=== PATIENT | male | born 1970 | race Caucasian/White ===

== ENCOUNTER → 2018-08-15 13:36 | Outpatient (CLI) | payer OTHER, SELFPAY ==
[2018-08-15 16:18] LABS: Anion Gap 10 (5-15); BUN 22 mg/dL (7-18); BUN/Creat Ratio 14.7 RATIO (10-20); Calcium,Total 8.5 mg/dL (8.5-10.1); Chloride 104 mmol/L (98-107); EST Glomerular Filtration Rate 53 mL/min (>60); Est Glom Filt Rate - Afr Amer 64 mL/min (>60); Glucose 207 mg/dL (74-106); Potassium 3.6 mmol/L (3.5-5.1); Sodium Level 142 mmol/L (136-145)
== END ==
PROVIDERS: Family Provider Internal Medicine; PCP Internal Medicine; Referring Provider Internal Medicine Nephrology; Visit Provider Internal Medicine Nephrology
DX: N18.3 Chronic kidney disease, stage 3 (moderate) (principal)
CPT/HCPCS: 36415; 80048

== ENCOUNTER → 2018-11-06 09:30 | Outpatient (CLI) | payer OTHER, SELFPAY ==
[2018-11-06 10:04] LABS: Hematocrit 40.9 % (40-54); Hemoglobin 13.7 g/dl (13.0-16.5); Mean Corp Hgb Conc 33.5 g/gl (32-36); Mean Corpuscular Hgb 29.2 pg (27.0-32.0); Mean Corpuscular Volume 87.2 fL (80-94); Mean Platelet Vol. 10.9 fl (6.2-12.0); Platelet Count 199 K/mm3 (150-450); RBC Distribution Width CV 14.4 % (11.6-14.6); RBC Distribution Width SD 45.5 fl (35.1-43.9); Red Blood Count 4.69 M/mm3 (4.6-6.2); White Blood Count 6.1 K/mm3 (4.4-11.0)
[2018-11-06 10:05] LABS: Scan Indicated on CBC? Y/N NO
[2018-11-06 10:13] LABS: Protein, Urine (Random) 17.5 mg/dL (<11.9); Protein:Creat Ratio 182 mg/g CRE (0-200)
[2018-11-06 10:33] LABS: Albumin, Serum 3.7 g/dL (3.2-5.0); BUN 30 mg/dL (7-18); BUN/Creat Ratio 18.1 RATIO (10-20); Calcium,Total 8.8 mg/dL (8.5-10.1); Chloride 106 mmol/L (98-107); Creatinine, Serum 1.66 mg/dL (0.70-1.30); EST Glomerular Filtration Rate 47 mL/min (>60); Est Glom Filt Rate - Afr Amer 57 mL/min (>60); Glucose 141 mg/dL (74-106); Phosphorus 2.4 mg/dL (2.5-4.9); Potassium 4.4 mmol/L (3.5-5.1); Sodium Level 139 mmol/L (136-145)
[2018-11-06 10:45] LABS: PTHIN 83.2 pg/mL (18.4-80.1)
[2018-11-06 10:46] LABS: Vitamin D,25 Hydroxy 10.6 ng/mL (29.95-100.01)
== END ==
PROVIDERS: Family Provider Internal Medicine; PCP Internal Medicine; Referring Provider Internal Medicine Nephrology; Visit Provider Internal Medicine Nephrology
DX: N18.3 Chronic kidney disease, stage 3 (moderate) (principal)
CPT/HCPCS: 36415; 80069; 82306; 82570; 83970; 84156; 85027

== ENCOUNTER → 2019-04-17 08:33 | Outpatient (CLI) | payer OTHER, SELFPAY ==
[2019-04-17 10:17] LABS: Hematocrit 39.1 % (40-54); Mean Corp Hgb Conc 33.2 g/dL (32-36); Mean Corpuscular Hgb 29.3 pg (27.0-32.0); Mean Corpuscular Volume 88.3 fL (80-94); Mean Platelet Vol. 10.9 fl (6.2-12.0); Platelet Count 227 K/mm3 (150-450); Red Blood Count 4.43 M/mm3 (4.6-6.2); White Blood Count 6.4 K/mm3 (4.4-11.0)
[2019-04-17 10:35] LABS: Protein, Urine (Random) 13.3 mg/dL (<11.9); Protein:Creat Ratio 211 mg/g CRE (0-200)
[2019-04-17 10:51] LABS: Albumin, Serum 3.6 g/dL (3.2-5.0); BUN 34 mg/dL (7-18); BUN/Creat Ratio 18.4 RATIO (10-20); Calcium,Total 9.1 mg/dL (8.5-10.1); Chloride 109 mmol/L (98-107); Creatinine, Serum 1.85 mg/dL (0.70-1.30); EST Glomerular Filtration Rate 41 mL/min (>60); Est Glom Filt Rate - Afr Amer 50 mL/min (>60); Glucose 144 mg/dL (74-106); Phosphorus 2.6 mg/dL (2.5-4.9); Potassium 4.4 mmol/L (3.5-5.1); Sodium Level 140 mmol/L (136-145)
[2019-04-17 10:55] LABS: Vitamin D,25 Hydroxy 23.6 ng/mL (29.95-100.01)
== END ==
PROVIDERS: Family Provider Internal Medicine; PCP Internal Medicine; Referring Provider Internal Medicine Nephrology; Visit Provider Internal Medicine Nephrology
DX: N18.3 Chronic kidney disease, stage 3 (moderate) (principal); N25.81 Secondary hyperparathyroidism of renal origin; E55.9 Vitamin D deficiency, unspecified; Z13.0 Encounter for screening for diseases of the blood and blood-forming organs and certain disorders involving the immune mechanism
CPT/HCPCS: 36415; 80069; 82306; 82570; 83970; 84156; 85027

== ENCOUNTER → 2019-04-29 08:42 | Outpatient (CLI) | payer OTHER, SELFPAY ==
--- NOTE | 2019-04-29 08:44 | RDU_ITS ---
Reason For Study: HTN Right Renal Artery Left Renal Artery Right renal artery ostium Left renal artery ostium 79.7/19.5 113.2/36.4 RSV/EDV. PSV/EDV. Right renal artery proximal Left renal artery proximal PSV/EDV 122.7/25.7 PSV/EDV. 77.8/18.8 . Right renal artery mid 101.4/231 Left renal artery mid 71.1/21 PSV/EDV. PSV/EDV . Right renal artery distal Left renal artery distal 89.5/23.3 125.5/36.4 PSV/EDV. PSV/EDV. Right Renal Parenchyma Left Renal Parenchyma Upper Pole Medula 34.1/15.1 Left upper pole medulla 28.6/7.7 PSV/EDV. PSV/EDV . Right upper pole medulla EDR 0.44 . Left upper pole medulla EDR 0.27 . Right upper pole medulla R.I. Left upper pole medulla R.I. 0.73 . 0.56 . UP Cortex 20.1/5.8 PSV/EDV. Upper Sree Cortx 20.6/8.4 PSV/EDV. Left upper pole cortex EDR 0.29 . Right upper pole cortex EDR 0.41 . Left upper pole cortex R.I. 0.71 . Right upper pole cortex R.I. 0.60 . Left lower Pole medulla 31.1/9.1 Right lower Pole medulla 34.8/12.7 PSV/EDV . PSV/EDV . Left lower pole medulla EDR 0.29 . Right lower pole medulla EDR 0.36 . Left lower pole medulla R.I. 0.71 . Right lower pole medulla R.I. Lower Pole Cortx 18.5/5.8 PSV/EDV. 0.64 . Left lower pole cortex EDR 0.31 . Lower Pole Cortex 21.2/7.7 PSV/EDV. Left lower pole cortex R.I. 0.68 . Right lower pole cortex EDR 0.36 . Left Renal Hilar Right lower pole cortex R.I. 0.64 . LT Hilar avg 56.3/16.1 PSV/EDV . Right Renal Hilar Left hilar acceleration time 10 Right Hilar avg 53.5/10.6 PSV/EDV. m/sec. Right hilar acceleration time 30 Left Renal Dimensions m/sec. Left kidney size 11.16 cm . Right Renal Dimensions Left cortical dimension 1.92 cm . Right kidney size 10.53 cm . Right cortical dimension 2.07 cm . Aorta Proximal abdominal aorta 1.71 x 1.68 cm . Proximal abdominal aorta peak systolic velocity is 128.6 cm/sec . Distal abdominal aorta 1.31 x 1.31 cm . Distal abdominal aorta peak systolic velocity is 135.2 cm/sec . Interpretation Summary Dimensions of the intra-abdominal aorta appear normal, without evidence of aneurysmal dilatation. Renal artery velocities are bilaterally normal. Acceleration times are normal bilaterally. There is no evidence of hemodynamically significant renal artery stenosis on either side. Renovascular resistance appears normal in the right kidney, and elevated in the left kidney. The right cortical dimension is increased. The left cortical dimension is increased. Kidneys appear normal in size bilaterally. Ordering Physician: Sumeet Zaidi Referring Physician: Marlene Haley M.D. Performed By: Nica Stephenson RVT
== END ==
PROVIDERS: Family Provider Internal Medicine; PCP Internal Medicine; Referring Provider Internal Medicine Nephrology; Visit Provider Internal Medicine Nephrology
DX: I10 Essential (primary) hypertension (principal)
CPT/HCPCS: 93975

== ENCOUNTER → 2019-07-31 15:10 | Outpatient (CLI) | payer OTHER, SELFPAY ==
[2019-07-29 14:53] VITALS: BMI 41.8
--- NOTE | 2019-07-31 15:11 | US_ITS ---
STUDY: SCROTUM ULTRASOUND REASON FOR EXAM: Male, 48 years old. RT SIDED PAIN TECHNIQUE: Ultrasound evaluation of the scrotum was performed with color Doppler and static herrera-scale imaging. COMPARISON: None. FINDINGS: RIGHT TESTICLE INTRATESTICULAR: There is a normal size of the right testicle. The right testicle measures 4.1 x 3.0 x 2.6 cm. There is a homogenous echotexture. There is normal arterial and normal venous vascularity. There is no demonstrated right testicular mass or cyst. EXTRATESTICULAR: The epididymis is normal in size. The epididymis head measures 1.0 cm. There is normal vascularity of the epididymis. There is no demonstrated epididymal cystic structure. There is a small hydrocele. There are prominent extratesticular veins consistent with a varicocele. There is no demonstrated extratesticular mass or cyst. LEFT TESTICLE INTRATESTICULAR: There is a normal size of the left testicle. The left testicle measures 3.8 x 3.1 x 2.3 cm. There is a homogenous echotexture. There is normal arterial and normal venous vascularity. There is no demonstrated left testicular mass or cyst. EXTRATESTICULAR: The epididymis is normal in size. The epididymis head measures 0.7 cm. There is normal vascularity of the epididymis. There is simple epididymal cysts. There is a small hydrocele. There are prominent extratesticular veins consistent with a varicocele. There is no demonstrated extratesticular mass or cyst. US/Testicular with Arterial Flow IMPRESSION: 1. Normal bilateral testicles. 2. Small bilateral hydroceles. Small varicoceles. Electronically Signed: Kike Larson MD (Brooks) at 20:58 EST , Service support ,
== END ==
LOC: US 15:11
PROVIDERS: PCP Internal Medicine; Referring Provider Internal Medicine; Visit Provider Internal Medicine
DX: R10.31 Right lower quadrant pain (principal); N50.82 Scrotal pain
CPT/HCPCS: 76870; 93976

== ENCOUNTER 2019-08-06 08:00 | Outpatient (RCR) | payer OTHER, SELFPAY ==
[2019-07-29 14:53] VITALS: BMI 41.8
== END 2019-08-14 23:59 ==
LOC: DC 08:00
PROVIDERS: PCP Internal Medicine; Visit Provider Internal Medicine
DX: Z71.3 Dietary counseling and surveillance (principal); E11.9 Type 2 diabetes mellitus without complications
CPT/HCPCS: 97802; G0108

== ENCOUNTER → 2019-08-17 09:14 | Outpatient (CLI) | payer OTHER, SELFPAY ==
[2019-07-29 14:53] VITALS: BMI 41.8
[2019-08-17 09:56] LABS: Anion Gap 2 (5-15); BUN 50 mg/dL (7-18); BUN/Creat Ratio 23.4 RATIO (10-20); Calcium,Total 9.4 mg/dL (8.5-10.1); Chloride 113 mmol/L (98-107); Cholesterol 215 mg/dL (200); Creatinine, Serum 2.14 mg/dL (0.70-1.30); EST Glomerular Filtration Rate 35 mL/min (>60); Est Glom Filt Rate - Afr Amer 42 mL/min (>60); Glucose 113 mg/dL (74-106); High Density Lipoprotein 27 mg/dL; Sodium Level 139 mmol/L (136-145); Triglycerides 335 mg/dL; Very Low Density Lipoprotein 67 mg/dL (5-40)
== END ==
PROVIDERS: PCP Internal Medicine; Referring Provider Internal Medicine Nephrology; Visit Provider Internal Medicine Nephrology
DX: N18.3 Chronic kidney disease, stage 3 (moderate) (principal)
CPT/HCPCS: 36415; 80048; 80061

== ENCOUNTER 2019-09-08 08:30 | Outpatient (RCR) | payer OTHER, SELFPAY ==
[2019-07-29 14:53] VITALS: BMI 41.8
== END 2019-09-12 23:59 ==
LOC: DC 08:30
PROVIDERS: PCP Internal Medicine; Visit Provider Internal Medicine
DX: Z71.3 Dietary counseling and surveillance (principal); E11.9 Type 2 diabetes mellitus without complications
CPT/HCPCS: 97803; G0108

== ENCOUNTER → 2019-10-29 15:12 | Outpatient (CLI) | payer OTHER, SELFPAY ==
[2019-10-29 13:34] VITALS: BMI 39.6
[2019-10-29 16:09] LABS: Anion Gap 6 (5-15); BUN 30 mg/dL (7-18); BUN/Creat Ratio 17.8 RATIO (10-20); Calcium,Total 9.3 mg/dL (8.5-10.1); Chloride 108 mmol/L (98-107); Creatinine, Serum 1.69 mg/dL (0.70-1.30); EST Glomerular Filtration Rate 46 mL/min (>60); Est Glom Filt Rate - Afr Amer 55 mL/min (>60); Glucose 104 mg/dL (74-106); Potassium 4.5 mmol/L (3.5-5.1); Sodium Level 141 mmol/L (136-145)
[2019-10-29 16:24] LABS: Hemoglobin A1c 5.9 % (4.2-6.3)
== END ==
PROVIDERS: PCP Internal Medicine; Referring Provider Internal Medicine; Visit Provider Internal Medicine
DX: E11.9 Type 2 diabetes mellitus without complications (principal); I12.9 Hypertensive chronic kidney disease with stage 1 through stage 4 chronic kidney disease, or unspecified chronic kidney disease; N18.3 Chronic kidney disease, stage 3 (moderate)
CPT/HCPCS: 80048; 83036

== ENCOUNTER 2019-11-02 15:06 | Outpatient (RCR) | payer OTHER, SELFPAY ==
[2019-07-29 14:53] VITALS: BMI 41.8
[2019-10-29 13:34] VITALS: BMI 39.6
== END 2019-11-12 23:59 ==
LOC: DC 15:06
PROVIDERS: PCP Internal Medicine; Visit Provider Internal Medicine
DX: Z71.3 Dietary counseling and surveillance (principal); E11.9 Type 2 diabetes mellitus without complications
CPT/HCPCS: 97803

== ENCOUNTER → 2019-12-12 08:04 | Outpatient (CLI) | payer OTHER, SELFPAY ==
[2019-10-29 13:34] VITALS: BMI 39.6
[2019-12-12 09:37] LABS: Absolute Lymphocyte Count 1.57 X10^3/uL (0.83-4.51); Absolute Neutrophil Count 4.2 X10^3/uL (2.0-7.7); Basophil# 0.05 X10^3/uL; Basophil% 0.7 % (0-1); Eosinophil# 0.37 X10^3/uL; Eosinophils% 5.5 % (0-5); Hematocrit 37.6 % (40-54); Hemoglobin 11.9 g/dL (13.0-16.5); Lymphocyte # 1.57 X10^3/ul (4.0); Lymphocyte % 23.2 % (19-41); Mean Corp Hgb Conc 31.6 g/dL (32-36); Mean Corpuscular Hgb 28.3 pg (27.0-32.0); Mean Corpuscular Volume 89.3 fL (80-94); Mean Platelet Vol. 11.4 fl (6.2-12.0); Monocyte# 0.59 X10^3/uL; Monocyte% 8.7 % (0-10); NRBC Flagged by Analyzer 0 % (0-5); Neutrophil # 4.18 X10^3/uL (2.7-7.7); Neutrophil % 61.8 % (47-70); Platelet Count 273 K/mm3 (150-450); RBC Distribution Width CV 13.5 % (11.6-14.6); RBC Distribution Width SD 43.8 fl (35.1-43.9); Red Blood Count 4.21 M/mm3 (4.6-6.2); White Blood Count 6.8 K/mm3 (4.4-11.0)
[2019-12-12 09:49] LABS: Protein, Urine (Random) 33.9 mg/dL (<11.9); Protein:Creat Ratio 336 mg/g CRE (0-200)
[2019-12-12 10:08] LABS: Albumin, Serum 3.5 g/dL (3.2-5.0); BUN 40 mg/dL (7-18); BUN/Creat Ratio 20.7 RATIO (10-20); Calcium,Total 9.1 mg/dL (8.5-10.1); Chloride 116 mmol/L (98-107); Creatinine, Serum 1.93 mg/dL (0.70-1.30); EST Glomerular Filtration Rate 39 mL/min (>60); Est Glom Filt Rate - Afr Amer 47 mL/min (>60); Glucose 113 mg/dL (74-106); Phosphorus 4.2 mg/dL (2.5-4.9); Potassium 4.6 mmol/L (3.5-5.1); Sodium Level 141 mmol/L (136-145)
[2019-12-14 11:06] LABS: PTHIN 34.2 pg/mL (18.4-80.1)
[2019-12-14 11:07] LABS: Vitamin D,25 Hydroxy 21.3 ng/mL
== END ==
PROVIDERS: PCP Internal Medicine; Visit Provider Internal Medicine Nephrology
DX: N18.3 Chronic kidney disease, stage 3 (moderate) (principal); E55.9 Vitamin D deficiency, unspecified; N25.81 Secondary hyperparathyroidism of renal origin; Z13.0 Encounter for screening for diseases of the blood and blood-forming organs and certain disorders involving the immune mechanism
CPT/HCPCS: 80069; 82306; 82570; 83970; 84156; 85025

== ENCOUNTER → 2019-12-16 09:25 | Outpatient (CLI) | payer OTHER, SELFPAY ==
[2019-10-29 13:34] VITALS: BMI 39.6
--- NOTE | 2019-12-16 09:27 | EKG12_ITS ---
Test Reason : ARRYTHMIA Blood Pressure : / mmHG Vent. Rate : 083 BPM Atrial Rate : 083 BPM P-R Int : 152 ms QRS Dur : 086 ms QT Int : 364 ms P-R-T Axes : 018 058 013 degrees QTc Int : 427 ms Normal sinus rhythm Nonspecific T wave abnormality Abnormal ECG Confirmed by STEVIE KEN, JORGE ([id number]), medical transcription editor FRANCY RAO ([id number]) on 12/18/2019 9:13:07 AM Referred By: Cristi Serna Confirmed By:JORGE HUBBARD MD
== END ==
PROVIDERS: PCP Internal Medicine; Referring Provider Internal Medicine; Visit Provider Internal Medicine
DX: R00.1 Bradycardia, unspecified (principal)
CPT/HCPCS: 93005

== ENCOUNTER → 2020-01-29 08:52 | Outpatient (CLI) | payer OTHER, SELFPAY ==
[2020-01-29 08:15] VITALS: BMI 39.6
[2020-01-29 12:46] LABS: AST(SGOT) 9 U/L (15-37); Alanine Aminotransfer ALT/SGPT 24 U/L (16-61); Alkaline Phosphatase 96 U/L (45-117); Anion Gap 5 (5-15); BUN 49 mg/dL (7-18); BUN/Creat Ratio 22.6 RATIO (10-20); Calcium,Total 9.4 mg/dL (8.5-10.1); Chloride 116 mmol/L (98-107); Creatinine, Serum 2.17 mg/dL (0.70-1.30); EST Glomerular Filtration Rate 34 mL/min (>60); Est Glom Filt Rate - Afr Amer 41 mL/min (>60); Globulin 4.2 g/dL (2.2-4.2); Glucose 104 mg/dL (74-106); Potassium 5.1 mmol/L (3.5-5.1); Protein, Total 8.2 g/dL (6.4-8.2); Sodium Level 141 mmol/L (136-145)
== END ==
PROVIDERS: PCP Internal Medicine; Referring Provider Internal Medicine; Visit Provider Internal Medicine
DX: I10 Essential (primary) hypertension (principal)
CPT/HCPCS: 36415; 80053

== ENCOUNTER 2020-02-03 16:27 | Outpatient (RCR) | payer OTHER, SELFPAY ==
[2019-10-29 13:34] VITALS: BMI 39.6
[2020-01-29 08:15] VITALS: BMI 39.6
== END 2020-02-12 23:59 ==
LOC: DC 16:27
PROVIDERS: PCP Internal Medicine; Visit Provider Internal Medicine
DX: Z71.3 Dietary counseling and surveillance (principal); E11.9 Type 2 diabetes mellitus without complications
CPT/HCPCS: 97803

== ENCOUNTER 2020-03-29 09:56 | Outpatient (RCR) | payer OTHER, SELFPAY ==
[2020-01-29 08:15] VITALS: BMI 39.6
== END 2020-03-29 23:59 | disposition home or self-care (01) ==
LOC: DC 09:56
PROVIDERS: PCP Internal Medicine; Visit Provider Internal Medicine
DX: Z71.3 Dietary counseling and surveillance (principal); E11.9 Type 2 diabetes mellitus without complications
CPT/HCPCS: 97803

== ENCOUNTER → 2020-04-29 07:56 | Outpatient (CLI) | payer OTHER, SELFPAY ==
[2020-01-29 08:15] VITALS: BMI 39.6
[2020-04-29 12:27] LABS: Absolute Lymphocyte Count 1.56 X10^3/uL (0.83-4.51); Absolute Neutrophil Count 4.1 X10^3/uL (2.0-7.7); Basophil# 0.05 X10^3/uL; Basophil% 0.8 % (0-1); Eosinophil# 0.27 X10^3/uL; Eosinophils% 4.1 % (0-5); Hematocrit 40.7 % (40-54); Hemoglobin 13.2 g/dL (13.0-16.5); Lymphocyte # 1.56 X10^3/ul (4.0); Lymphocyte % 23.7 % (19-41); Mean Corp Hgb Conc 32.4 g/dL (32-36); Mean Corpuscular Hgb 29.8 pg (27.0-32.0); Mean Corpuscular Volume 91.9 fL (80-94); Mean Platelet Vol. 11.3 fl (6.2-12.0); Monocyte# 0.62 X10^3/uL; Monocyte% 9.4 % (0-10); NRBC Flagged by Analyzer 0 % (0-5); Neutrophil # 4.06 X10^3/uL (2.7-7.7); Neutrophil % 61.7 % (47-70); Platelet Count 274 K/mm3 (150-450); RBC Distribution Width CV 12.9 % (11.6-14.6); RBC Distribution Width SD 43.2 fl (35.1-43.9); Red Blood Count 4.43 M/mm3 (4.6-6.2); White Blood Count 6.6 K/mm3 (4.4-11.0)
[2020-04-29 12:50] LABS: Microalbumin,Random Urine 23.3 mg/L (NO RANGE EST.)
[2020-04-29 12:56] LABS: ALB/GLOB Ratio 0.9 RATIO (0.9-2.4); AST(SGOT) 14 U/L (15-37); Alanine Aminotransfer ALT/SGPT 28 U/L (16-61); Albumin, Serum 3.9 g/dL (3.2-5.0); Alkaline Phosphatase 105 U/L (45-117); Anion Gap 5 (5-15); BUN 44 mg/dL (7-18); BUN/Creat Ratio 18.9 RATIO (10-20); Calcium,Total 9.5 mg/dL (8.5-10.1); Chloride 114 mmol/L (98-107); Cholesterol 258 mg/dL (200); Creatinine, Serum 2.33 mg/dL (0.70-1.30); EST Glomerular Filtration Rate 32 mL/min (>60); Est Glom Filt Rate - Afr Amer 38 mL/min (>60); Globulin 4.2 g/dL (2.2-4.2); Glucose 119 mg/dL (74-106); High Density Lipoprotein 39 mg/dL; Potassium 4.9 mmol/L (3.5-5.1); Protein, Total 8.1 g/dL (6.4-8.2); Sodium Level 141 mmol/L (136-145); Thyroid Stim Hormone (TSH) 0.99 uIU/mL (0.358-3.74); Triglycerides 111 mg/dL; Very Low Density Lipoprotein 22 mg/dL (5-40)
[2020-04-29 13:17] LABS: Hemoglobin A1c 5.7 % (3.8-5.6)
== END ==
PROVIDERS: PCP Internal Medicine; Referring Provider Nurse Practitioner Family; Visit Provider Nurse Practitioner Family
CPT/HCPCS: 36415; 80053; 80061; 82043; 82570; 83036; 84443; 85025

== ENCOUNTER → 2020-06-08 07:09 | Outpatient (CLI) | payer OTHER, SELFPAY ==
[2020-05-31 12:58] VITALS: BMI 35.7
--- NOTE | 2020-06-08 07:17 | MRI_ITS ---
STUDY: MRI RIGHT HAND (ATTENTION THIRD FINGER) REASON FOR EXAM: Lump of the third finger at skin marker, increasing in size over the last year. TECHNIQUE: Standardized fat and water weighted pulse sequences were obtained in all 3 orthogonal planes. COMPARISON: Radiographs 05/31/2020. FINDINGS: Normal phalanges of the first through fifth digits and visualized metacarpals without bone edema or pressure erosion. Normal flexor and extensor tendons. Normal metacarpophalangeal joints. Normal interphalangeal joints. There is a well-defined soft tissue mass at the ulnar aspect of the third middle phalanx measuring 1.0 x 0.8 x 1.1 cm (AP x transverse x length). The lesion is intermediate in signal intensity on T1 sequences (T1 axial images 22, 23; T1 coronal images 9, 10) and T2 sequences (T2 sagittal image 17). MRI/Upper Ext/No Jt/ wo IMPRESSION: Soft tissue mass at the ulnar aspect of the third middle phalanx, giant cell tumor of the tendon sheath is the leading differential consideration. Electronically Signed: Alhaji Moore MD at 9:26 EST Tel , Service support ,
[2020-06-08 09:14] LABS: Absolute Lymphocyte Count 1.68 X10^3/uL (0.83-4.51); Absolute Neutrophil Count 4.3 X10^3/uL (2.0-7.7); Basophil# 0.05 X10^3/uL; Basophil% 0.7 % (0-1); Eosinophils% 5.5 % (0-5); Hematocrit 38.4 % (40-54); Hemoglobin 12.3 g/dL (13.0-16.5); Lymphocyte # 1.68 X10^3/ul (4.0); Lymphocyte % 23.3 % (19-41); Mean Corpuscular Hgb 29.5 pg (27.0-32.0); Mean Corpuscular Volume 92.1 fL (80-94); Monocyte# 0.73 X10^3/uL; Monocyte% 10.1 % (0-10); NRBC Flagged by Analyzer 0 % (0-5); Neutrophil # 4.33 X10^3/uL (2.7-7.7); Neutrophil % 60.1 % (47-70); Platelet Count 259 K/mm3 (150-450); RBC Distribution Width CV 12.9 % (11.6-14.6); Red Blood Count 4.17 M/mm3 (4.6-6.2); White Blood Count 7.2 K/mm3 (4.4-11.0)
[2020-06-08 09:27] LABS: Protein, Urine (Random) 15.9 mg/dL (<11.9); Protein:Creat Ratio 331 mg/g CRE (0-200)
[2020-06-08 09:33] LABS: Albumin, Serum 3.7 g/dL (3.2-5.0); BUN 46 mg/dL (7-18); BUN/Creat Ratio 23.8 RATIO (10-20); Calcium,Total 9.1 mg/dL (8.5-10.1); Chloride 111 mmol/L (98-107); Creatinine, Serum 1.93 mg/dL (0.70-1.30); EST Glomerular Filtration Rate 39 mL/min (>60); Est Glom Filt Rate - Afr Amer 47 mL/min (>60); Glucose 112 mg/dL (74-106); Phosphorus 3.6 mg/dL (2.5-4.9); Potassium 4.7 mmol/L (3.5-5.1); Sodium Level 141 mmol/L (136-145)
[2020-06-10 14:39] LABS: Vitamin D,25 Hydroxy 18.2 ng/mL
== END ==
PROVIDERS: Internal Medicine Nephrology; PCP Internal Medicine; Referring Provider Orthopaedic Surgery; Visit Provider Orthopaedic Surgery
DX: D49.9 Neoplasm of unspecified behavior of unspecified site (principal); N18.30 Chronic kidney disease, stage 3 unspecified; N25.81 Secondary hyperparathyroidism of renal origin; E55.9 Vitamin D deficiency, unspecified; R22.30 Localized swelling, mass and lump, unspecified upper limb
CPT/HCPCS: 36415; 73218; 80069; 82306; 82570; 83970; 84156; 85025

== ENCOUNTER → 2020-08-05 07:58 | Outpatient (CLI) | payer OTHER, SELFPAY ==
[2020-08-05 07:34] VITALS: BMI 37.5
[2020-08-05 13:01] LABS: Cholesterol 293 mg/dL (200); High Density Lipoprotein 37 mg/dL; Triglycerides 248 mg/dL; Very Low Density Lipoprotein 50 mg/dL (5-40)
== END ==
PROVIDERS: PCP Internal Medicine; Referring Provider Nurse Practitioner Family; Visit Provider Nurse Practitioner Family
DX: E78.5 Hyperlipidemia, unspecified (principal); E55.9 Vitamin D deficiency, unspecified
CPT/HCPCS: 36415; 80061

== ENCOUNTER 2020-09-05 07:56 | Day surgery (SDC) | payer OTHER, SELFPAY ==
[2020-08-10 09:46] VITALS: BMI 39.9
--- NOTE | 2020-09-04 19:41 | HP.PCM_ITS ---
History and Physical Date of Admission: 09/05/20 HISTORY OF PRESENT ILLNESS 49 year old man presents with a soft tissue mass ulnar aspect middle phalanx right long finger that he first noticed about 12 years ago and has recently increased in size. He denies trauma. He denies fever. He denies numbness. He denies any functional problems with his right long finger. Aspiration was attempted without any fluid return. He had an x-ray done on 05/31/20. It showed soft tissue mass at the ulnar aspect of the middle phalanx without underlying osseous abnormality. An MRI was done on 06/08/20. It showed soft tissue mass at the ulnar aspect of the third middle phalanx, giant cell tumor of the tendon sheath is the leading differential consideration. Patient is right hand dominant. Patient has diabetes mellitus, and his last HgbA1c on 08/05/20 was 6.6. He presents today for further evaluation and treatment. 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 Enlargement of liver Gallstones High cholesterol History of basal cell carcinoma Kidney disease Arthritis Heart valve problem Hypertension Vitamin deficiency PAST SURGICAL HISTORY excision of mass Skin cancer ALLERGIES No Known Allergies MEDICATIONS cholecalciferol (vitamin D3) amlodipine hydrochlorothiazide lisinopril spironolactone fenofibrate gemfibrozil rosuvastatin FAMILY HISTORY Father - Heart disease, Diabetes, Liver disease, Hypertension, High cholesterol Grandfather - Myocardial infarction Mother - High cholesterol, Hypertension Other - Anxiety, Combined hyperlipidemia SOCIAL HISTORY Smoking Status: Never smoker alcohol intake: current alcohol intake frequency: a few times a month substance use type: does not use REVIEW OF SYSTEMS General - Denies fever, fatigue, and weight loss. Eyes - Denies cataracts and glaucoma. ENT - Denies nasal congestion and sore throat. Endocrine - Denies excessive thirst and urination. Skin - Has personal history of skin cancer. Has soft tissue mass ulnar aspect at middle phalanx right long finger. Musculoskeletal - Denies joint pain, joint stiffness, weakness of muscles and joints, back pain, and arthritis. Neuro - Denies headaches. Cardiovascular - Denies chest pain, fatigue, and shortness of breath with exertion. Psych - Denies anxiety and depression. Respiratory - Denies chronic cough and shortness of breath. Gastrointestinal - Denies nausea, vomiting, diarrhea, and constipation. Hematologic - Denies abnormal bruising and bleeding. Genitourinary - Denies hematuria and urinary frequency. PHYSICAL EXAMINATION General - Alert and Oriented. HEENT - PERRL. EOMI. Throat is clear. Neck - Supple and nontender. No cervical adenopathy. Lungs - Clear to auscultation. Heart - Regular rate and rhythm. Abdomen - Soft and nondistended. Extremities - FROM. No axillary adenopathy. Radial pulses are palpable. Patient is right hand dominant. On the dorsal ulnar aspect at middle phalanx right long finger is a soft tissue mass. Measures 2.2 cm. No ulceration. Mass is nontender. Some firmness noted. No fluctuance. No sensory deficits to pinprick. Fingers are warm with good capillary refill. Neuro - CN II-XII grossly intact. Psych - Normal mood and affect. ASSESSMENT 1. 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 2. Personal history of skin cancer. 3. Diabetes mellitus. PLAN X-ray reviewed from 05/31/20. It showed soft tissue mass at the ulnar aspect of the middle phalanx without underlying osseous abnormality. MRI reviewed from 06/08/20. It showed soft tissue mass at the ulnar aspect of the third middle phalanx, giant cell tumor of the tendon sheath is the leading differential consideration. Recommend surgical excision of this soft tissue mass. Will send the mass to Pathology for analysis to rule out carcinoma. Surgery will be done under general anesthesia and tourniquet control on an outpatient basis. Dissection can be tedious because the mass ca wrap around the tendon and the neurovascular bundle since the mass is located ulnarly. Patient understands that nerve repair may be necessary if injured during the surgery. It is important to be as thorough as possible during the initial excision since recurrence is common. Revision surgery is more complex and risky because of the scar tissue which makes it more likely that injury to associated structures may occur. If there is adherence of the mass to the skin, I won't hesitate to remove the overlying skin to help minimize recurrence. Reconstruction would be with a skin flap or a skin graft. Patient has diabetes mellitus. His latest HgbA1c is 6.6 on 08/05/20. For elective surgery, the HgbA1c needs to be less than 8. After surgery if there is stiffness, would order OT for range of motion exercises, strengthening, and edema management. Patient was informed of the risks and complications of the procedure including alternatives to surgery. These were discussed with the patient personally. Patient voices understanding and wishes to proceed. Some of the risks and complications were included in a form from the [employer] [employer]. Some of the risks and complications that were discussed included but were not inclusive of failure to diagnose including symptom relief, pain, infection, numbness, stiffness, loss of digit, RSD (CRPS), need for further surgery, contracture, and wound healing problems. We discussed the current risks associated with COVID-19. While it is understood that there is a community spread of COVID-19, the risk of kailee COVID-19 while at [facility] ([facility]) is very low; however, the risk cannot be completely mitigated because of the community spread of the disease. We discussed in detail the risk of exposure to and/or potential harm posed by the COVID-19 virus with having a surgery/procedure at this time versus the risk of delaying the surgery/procedure. It is not possible to know either the risk of delaying the surgery or procedure or chance of getting an infection with perfect accuracy, but a joint decision was made to proceed at this time with the scheduled surgery/procedure as indicated on the consent form. Patient was notified that we will need to comply with any screening or testing [facility] wishes to perform or that surgery may be delayed for any positive results. Discussed with the patient that I was tested for COVID-19 on 01/14/20 which was negative and on 01/28/20 which was negative and on 02/11/20 which was negative and on 02/25/20 which was negative and on 03/10/20 which was negative and on 03/31/20 which was negative and on 04/21/20 which was negative and on 05/26/20 which was negative and on 06/16/20 which was negative and on 07/05/20 which was negative. My testing regimen at this time is to be COVID-19 tested every 2 weeks or so. I received the COVID-19 vaccine (Moderna) on 07/13/20 and the second dose was received on 08/10/20.
--- NOTE | 2020-09-05 | IMM_PTH ---
PATIENT: UMER PACE Jr. LOC: [facility] – [place] U#:[id number] AGE/SX: 49/M ROOM: RE09/05/[address]: Dr. Leo Moncada MD : 1970 BED: DIS: 09/05/2020 SPEC #: [id number] RECD: 09/06/20 11:39 STATUS: SOUKelly REQ #: [id number] CB: 09/05/20 00:[address]: Leo Moncada DEPT: IMMUNOHISTOCHEMISTRY RECD BY: Meredith Jones ENTERED: 09/06/20 11:42 SP TYPE: IMMUNO OTHR DR: Dr. Cristi Serna MD Tissues: Finger, NOS Procedures: SMA (add) Tio Ret (add) CD34 (add) CK5-6 (add) DESMIN (add) LIZABETH (add) MACRO (add) Vimentin (add) SMM (add) NEUROFIL (add) Pankeratin (initial) S-100 (add) PHYSICIAN & INSTITUTION [address] [address] SPECIMEN INFORMATION: Tissue Source: Soft tissue mass ulnar aspect middle phalanx ring long finger Clinical Info: Soft tissue mass ulnar aspect middle phalanx ring long finger Specimen Number: [id number] CPT code: 73578, 68716 x11 METHODOLOGY: Deparaffinized sections of prefer/formalin-fixed tissue or PAP/DQ stained slides are incubated with monoclonal/polyclonal antibodies/oligonucleotide probes. Localization is made via biotin free immunoperoxidase method. Appropriate controls are performed and reacted as expected. Results on target cell population are indicated in the following table: RESULTS: ANTIBODY / CLONE RESULT AE1-3 (AE1/AE3/PCK26) negative Vimentin (V9) positive CD34 (QBEnd-10) positive, strong Macro (HAM-56) negative Actin (1A4) negative Myosin (simms1) negative Desmin (CE-R-11) negative S-100 (4C4.9) positive, focal, dim Neurofil (2F11) negative CALRET (polyclonal) negative CK5-6 (D5 & 1684) negative LIZABETH (E29) negative These tests were developed and their performance characteristics determined by [facility]. They may not have been cleared or approved by the U.S. Food and Drug Administration. The FDA has determined that such clearance or approval is not necessary. The above immunohistochemical/dualISH markers are ordered and reviewed by the Pathologist. INTERPRETATION: Soft tissue of right long finger, excision: Consistent with neurofibroma. AM:girish 09/07/2020 Case has been reviewed in consultation with Dr. Fuentes who concurs with the above diagnosis. IDC:SARAH
[2020-09-05 08:21] VITALS: BP 127/71; PULSE 77; RESP 16; TEMP 36.6; O2SAT 99; BMI 39.9
[2020-09-05] MEDS: Lactated Ringers 1,000 ML 100 ML IV ×2 (08:26→10:26)
[2020-09-05] MEDS: Lidocaine 1% /Epi 1:100 (20ml) 20 ML Vial (09:27)
--- NOTE | 2020-09-05 09:30 | SOF_PTH ---
PATIENT: UMER PACE Jr. LOC: [facility] [place] U#:[id number] AGE/SX: 49/M ROOM: RE09/05/[address]: Dr. Leo Moncada MD : 1970 BED: DIS: 09/05/2020 SPEC #: [id number] RECD: 09/05/20 11:53 STATUS: MAYTE REAngy #: [id number] CB: 09/05/20 09:[address]: Leo Moncada DEPT: SURGICAL PATHOLOGY RECD BY: Hetal nErique ENTERED: 09/05/20 12:42 SP TYPE: SOFT TISS OTHR DR: Dr. 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 AM:girish COMMENT Immunohistochemistry ([id number]) supports the above diagnosis. Case has been reviewed in consultation with Dr. Fuentes who concurs with the above diagnosis. FRANKLIN:SARAH MICROSCOPIC DESCRIPTION Slides are reviewed. GROSS DESCRIPTION Received in fixative is one container labeled with the patient's name and designated 2.2 cm soft tissue mass ulnar aspect at middle phalanx right long finger. The specimen consists of a piece of hammer soft tissue measuring 1.5 x 1.2 x 1 cm. The entire specimen is submitted in one cassette. / SARAH:girish 09/05/20 TC:1 CPT: 58836
[2020-09-05] MEDS: Mupirocin Ointment 22gm Tube 1 APPLIC (10:05)
--- NOTE | 2020-09-05 10:14 | PCM.OPRPT ---
Report of Operation Date of Procedure: 09/05/20 Pre-Operative Diagnosis: 1. 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 2. Personal history of skin cancer. 3. Diabetes mellitus. Post-Operative Diagnosis: 1. 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 2. Personal history of skin cancer. 3. Diabetes mellitus. 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 Description of Surgical Findings:: 49 year old man presents with a soft tissue mass ulnar aspect middle phalanx right long finger that he first noticed about 12 years ago and has recently increased in size. He denies trauma. He denies fever. He denies numbness. He denies any functional problems with his right long finger. Aspiration was attempted without any fluid return. He had an x-ray done on 05/31/20. It showed soft tissue mass at the ulnar aspect of the middle phalanx without underlying osseous abnormality. An MRI was done on 06/08/20. It showed soft tissue mass at the ulnar aspect of the third middle phalanx, giant cell tumor of the tendon sheath is the leading differential consideration. Patient is right hand dominant. Patient has diabetes mellitus, and his last HgbA1c on 08/05/20 was 6.6. Patient was informed of the risks and complications of the procedure including alternatives to surgery. These were discussed with the patient personally. Patient voices understanding and wishes to proceed. Some of the risks and complications were included in a form from the [employer] [employer]. Total tourniquet time - 23 minutes. senior data modeler: Jazzy CALLEJAS. 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 Drains: None. Estimated Blood Loss (mL): 5 ml. Description of Procedure: Patient was taken to OR in supine position and was placed under general anesthesia. The right hand was prepped and draped in the usual fashion. SCD's were placed for DVT prophylaxis. Perioperative antibiotics were given intravenously. Using xylocaine with epinephrine, a digital metacarpal block was infiltrated. After waiting 5 minutes for the anesthetic to take effect, a digital tourniquet was placed at the base of the right long finger. Under loupe magnification, I made a longitudinal elliptical incision over the dorsal ulnar aspect right long finger at the middle phalanx. The mass was seen. It was dissected down to the extensor tendon. I extended the incision horizontally over the DIP joint crease distally and obliquely over the proximal phalanx proximally. This was done to get adequate composure. The skin flaps were elevated at the level of the extensor tendon. This allowed me to dissect completely around the mass to minimize recurrence. The extensor tendon was elevated and there was an extension of this soft tissue mass beneath the tendon and adherent to the bone. It was dissected free off the bone and underneath the tendon and sent to Pathology for analysis to rule out carcinoma. The mass was superficial to the neurovascular bundle on the ulnar aspect. Yhe mass clinically looked like a giant cell tumor of the tendon sheath. The wound was irrigated with saline. The tourniquet was released after 23 minutes. Hemostasis was obtained with electrocautery and gauze compression. I was able to close the wound without the need for a skin graft or a skin flap. The wound was closed with 5-0 Prolene vertical mattress interrupted sutures and simple interrupted sutures. Antibiotic ointment was applied to the suture line followed by Xeroform gauze and 2x2 gauze followed by 2 inch Mervin wrap. Patient tolerated the procedure well and was sent to PACU in satisfactory condition. Patient will be sent home on antibiotics and pain medication. Patient will followup in a week for a wound check and for discussion of the pathology report. The sutures will be removed in two weeks. Grafts/Implants Used: None. - Complications None. - Admit VTE Documentation VTE Present on Admission: No VTE Mechan Device Prophylaxis: SCD's VTE Pharm Prophylaxis ordered?: No Surgery Charges CPT - 45342 ICD-10 - D48.1, Z85.828
[2020-09-05 10:15] VITALS: BP 122/75; BP 127/71; PULSE 78; RESP 18; TEMP 36.2; O2SAT 100
[2020-09-05 10:30] VITALS: BP 114/64; BP 127/71; PULSE 72; RESP 16; O2SAT 95
--- NOTE | 2020-09-05 10:35 | DCINST_ITS ---
You will use the following diet at home:: Calorie/Carbohydrate Controlled (specify 1200, 1400, etc) Discharge Activity: May not drive while taking narcotic pain medications., May Shower - wear plastic bag over right hand when showering., - - keep right hand elevated. no heavy lifting with right hand. May shower in (days): 1 - wear plastic bag over right hand when showering. May resume sexual activity in: No Restrictions Weight Bearing Status: Weight bearing as tolerated Lifting Restrictions: 20 lbs. Keep extremity elevated above heart level: Right Arm Call your doctor if your incision/area has: Continuous Slow Oozing, Sudden Increased Bleeding, Increased Pain/ Swelling, Increased Redness, Foul Smelling Discharge, Swelling at the incision site Call your doctor if you observe: Fever of 101 or Higher, Coldness, Increased Pain, Shortness of breath, Chest pain, Calf discomfort, Uncontrolled pain Suture Line Care: - - apply antibiotic ointment to suture line after operative dressing removed in office. Change Dressing in (Days):: 7 - will change operative dressing in office. Cleanse incision/area with: - - wear plastic bag over right hand when showering. Allergies/Adverse Reactions: Allergies Penicillins [PCN] Allergy (Verified 08/29/20 08:58) PT UNSURE OF REACTION Medications to take at Discharge cholecalciferol (vitamin D3) 1,250 mcg (50,000 unit) oral wafer 50,000 unit PO QMONTH wafer 07/29/19 amlodipine 10 mg tablet 10 mg PO DAILY #90 tab 07/27/20 hydrochlorothiazide 25 mg tablet 25 mg PO DAILY #90 tab 07/27/20 lisinopril 40 mg tablet 40 mg PO DAILY #90 tab 07/27/20 spironolactone 25 mg tablet 25 mg PO DAILY #90 tab 07/27/20 fenofibrate nanocrystallized 48 mg tablet 48 mg PO DAILY #90 tab 08/10/20 Rosuvastatin Calcium 10 mg PO QHS 08/29/20 Clindamycin HCl [Cleocin] 300 mg PO TID #12 cap 09/05/20 Oxycodone HCl/Acetaminophen [Percocet 5/325] 1 tablet PO Q4H PRN PRN 7 Days #40 tablet 09/05/20 The following prescriptions were given: Clindamycin HCl [Cleocin] 300 mg PO TID #12 cap Transmission Status: Pending to [facility]30 Oxycodone HCl/Acetaminophen [Percocet 5/325] 1 tablet PO Q4H PRN PRN 7 Days #40 tablet PRN Reason: Pain Score 6-10 Transmission Status: Sent to [facility] #30 Primary Care Physician: Cristi Serna MD [Primary Care Provider] - Test Results: Test results from this visit will be discussed in further detail at your follow- up appointment, if applicable. Please Follow Up With: Leo Moncada MD When: one week. call [phone] for appt. Proposed Discharge Date: 09/05/20
[2020-09-05 10:45] VITALS: BP 110/68; BP 127/71; PULSE 72; RESP 16; O2SAT 96
[2020-09-05 11:00] VITALS: BP 114/64; BP 127/71; PULSE 74; RESP 16; TEMP 36.2; O2SAT 94
[2020-09-05] MEDS: Acetaminophen 325 MG Tablet PO (11:35)
[2020-09-05] MEDS: oxyCODONE 5 MG Tablet PO (11:36)
[2020-09-05 11:42] VITALS: BP 123/56; BP 127/71; PULSE 78; RESP 16; TEMP 36.4; O2SAT 98
== END 2020-09-05 12:08 | disposition home or self-care (01) ==
LOC: SDC 07:57 → AC 07:58
PROVIDERS: PCP Internal Medicine; Referring Provider Surgery; Visit Provider Surgery
PROC: (CPT 26113; principal; 2020-09-05 09:15)
DX: D48.1 Neoplasm of uncertain behavior of connective and other soft tissue (principal); Z85.828 Personal history of other malignant neoplasm of skin; E11.9 Type 2 diabetes mellitus without complications; E78.00 Pure hypercholesterolemia, unspecified; I10 Essential (primary) hypertension; M19.90 Unspecified osteoarthritis, unspecified site; Z79.899 Other long term (current) drug therapy; Z82.49 Family history of ischemic heart disease and other diseases of the circulatory system; Z83.49 Family history of other endocrine, nutritional and metabolic diseases; Z83.3 Family history of diabetes mellitus
CPT/HCPCS: 01850; 26113; 87426; 88305; 88341; 88342; C9803; J7120; J2405

== ENCOUNTER → 2022-04-20 | Outpatient (CLI) | payer OTHER, SELFPAY ==
[2022-04-20 09:34] LABS: Absolute Lymphocyte Count 1.44 X10^3/uL (0.83-4.51); Absolute Neutrophil Count 4.7 X10^3/uL (2.0-7.7); Basophil# 0.04 X10^3/uL; Basophil% 0.6 % (0-1); Eosinophil# 0.29 X10^3/uL; Hematocrit 40.4 % (40-54); Hemoglobin 13.4 g/dL (13.0-16.5); Lymphocyte # 1.44 X10^3/ul (0.83-4.51); Mean Corp Hgb Conc 33.2 g/dL (32-36); Mean Corpuscular Hgb 29.6 pg (27.0-32.0); Mean Corpuscular Volume 89.2 fL (80-94); Mean Platelet Vol. 11.3 fl (6.2-12.0); Monocyte# 0.73 X10^3/uL; Monocyte% 10.2 % (0-10); NRBC Flagged by Analyzer 0 % (0-5); Neutrophil # 4.66 X10^3/uL (2.7-7.7); Neutrophil % 64.8 % (47-70); Platelet Count 233 K/mm3 (150-450); RBC Distribution Width CV 13.5 % (11.6-14.6); RBC Distribution Width SD 44.1 fl (35.1-43.9); Red Blood Count 4.53 M/mm3 (4.6-6.2); White Blood Count 7.2 K/mm3 (4.4-11.0)
[2022-04-20 10:19] LABS: ALB/GLOB Ratio 0.9 RATIO (0.9-2.4); AST(SGOT) 23 U/L (15-37); Alanine Aminotransfer ALT/SGPT 36 U/L (16-61); Albumin, Serum 3.4 g/dL (3.2-5.0); Alkaline Phosphatase 71 U/L (45-117); Anion Gap 6 (5-15); BUN 51 mg/dL (7-18); BUN/Creat Ratio 15.7 RATIO (10-20); Calcium,Total 9.4 mg/dL (8.5-10.1); Chloride 105 mmol/L (98-107); Cholesterol 197 mg/dL (200); Creatinine, Serum 3.25 mg/dL (0.70-1.30); EST Glomerular Filtration Rate 21 mL/min (>60); Est Glom Filt Rate - Afr Amer 26 mL/min (>60); Globulin 3.7 g/dL (2.2-4.2); Glucose 176 mg/dL (74-106); High Density Lipoprotein 31 mg/dL; PSA,Total - Annual Screen 1.95 ng/mL (0.00-4.00); Potassium 4.8 mmol/L (3.5-5.1); Protein, Total 7.1 g/dL (6.4-8.2); Sodium Level 138 mmol/L (136-145); Thyroid Stim Hormone (TSH) 1.08 uIU/mL (0.358-3.74); Triglycerides 304 mg/dL; Very Low Density Lipoprotein 61 mg/dL (5-40)
[2022-04-20 10:46] LABS: Microalbumin,Random Urine 13.9 mg/L (NO RANGE EST.)
[2022-04-20 11:55] LABS: Vitamin D,25 Hydroxy 27.3 ng/mL
== END | disposition home or self-care (01) ==
LOC: BIMLAB 08:00
PROVIDERS: PCP Internal Medicine; Referring Provider Nurse Practitioner Family; Visit Provider Nurse Practitioner Family
DX: E11.9 Type 2 diabetes mellitus without complications (principal); N18.30 Chronic kidney disease, stage 3 unspecified; I12.9 Hypertensive chronic kidney disease with stage 1 through stage 4 chronic kidney disease, or unspecified chronic kidney disease; E78.5 Hyperlipidemia, unspecified; E55.9 Vitamin D deficiency, unspecified; Z12.5 Encounter for screening for malignant neoplasm of prostate
CPT/HCPCS: 36415; 80053; 80061; 82043; 82306; 82570; 84153; 84443; 85025; G0103

== ENCOUNTER → 2022-05-18 | Outpatient (CLI) | payer OTHER, SELFPAY ==
[2022-05-18 13:05] LABS: Anion Gap 8 (5-15); BUN 51 mg/dL (7-18); BUN/Creat Ratio 14.1 RATIO (10-20); Calcium,Total 9.9 mg/dL (8.5-10.1); Chloride 109 mmol/L (98-107); Creatinine, Serum 3.61 mg/dL (0.70-1.30); EST Glomerular Filtration Rate 19 mL/min (>60); Est Glom Filt Rate - Afr Amer 23 mL/min (>60); Glucose 113 mg/dL (74-106); Potassium 4.7 mmol/L (3.5-5.1); Sodium Level 139 mmol/L (136-145)
[2022-05-18 13:13] LABS: Protein, Urine (Random) 22.3 mg/dL (<11.9); Protein:Creat Ratio 88 mg/g CRE (0-200)
== END | disposition home or self-care (01) ==
LOC: BIMLAB 10:03
PROVIDERS: Nurse Practitioner Family; PCP Internal Medicine; Referring Provider Internal Medicine Nephrology; Visit Provider Internal Medicine Nephrology
DX: N18.32 Chronic kidney disease, stage 3b (principal)
CPT/HCPCS: 36415; 80048; 82570; 84156

== ENCOUNTER → 2022-06-15 | Outpatient (CLI) | payer OTHER, SELFPAY ==
[2022-06-15 12:40] LABS: Hematocrit 39.5 % (40-54); Hemoglobin 12.7 g/dL (13.0-16.5); Mean Corp Hgb Conc 32.2 g/dL (32-36); Mean Corpuscular Hgb 29.1 pg (27.0-32.0); Mean Corpuscular Volume 90.6 fL (80-94); Mean Platelet Vol. 11.5 fl (6.2-12.0); Platelet Count 243 K/mm3 (150-450); RBC Distribution Width CV 13.5 % (11.6-14.6); RBC Distribution Width SD 45.2 fl (35.1-43.9); Red Blood Count 4.36 M/mm3 (4.6-6.2); White Blood Count 6.3 K/mm3 (4.4-11.0)
[2022-06-15 12:43] LABS: Protein, Urine (Random) 23.4 mg/dL (<11.9); Protein:Creat Ratio 106 mg/g CRE (0-200)
[2022-06-15 12:45] LABS: PTHIN 38.2 pg/mL (18.4-80.1)
[2022-06-15 12:50] LABS: Albumin, Serum 3.8 g/dL (3.2-5.0); BUN 33 mg/dL (7-18); BUN/Creat Ratio 16.6 RATIO (10-20); Calcium,Total 9.6 mg/dL (8.5-10.1); Chloride 109 mmol/L (98-107); Creatinine, Serum 1.99 mg/dL (0.70-1.30); EST Glomerular Filtration Rate 38 mL/min (>60); Est Glom Filt Rate - Afr Amer 45 mL/min (>60); Glucose 103 mg/dL (74-106); Phosphorus 2.9 mg/dL (2.5-4.9); Potassium 3.8 mmol/L (3.5-5.1); Sodium Level 139 mmol/L (136-145)
== END | disposition home or self-care (01) ==
LOC: BIMLAB 09:00
PROVIDERS: PCP Internal Medicine; Referring Provider Internal Medicine Nephrology; Visit Provider Internal Medicine Nephrology
DX: R80.9 Proteinuria, unspecified (principal); N25.81 Secondary hyperparathyroidism of renal origin; N18.32 Chronic kidney disease, stage 3b; E55.9 Vitamin D deficiency, unspecified; Z13.0 Encounter for screening for diseases of the blood and blood-forming organs and certain disorders involving the immune mechanism
CPT/HCPCS: 36415; 80069; 82306; 82570; 83970; 84156; 85027

== ENCOUNTER 2022-07-22 23:06 | Observation (INO) | payer OTHER, SELFPAY ==
[2022-07-22 23:07] VITALS: BP 153/89; PULSE 96; RESP 15; TEMP 36.8; O2SAT 98; BMI 36.3
--- NOTE | 2022-07-22 23:35 | US_ITS ---
EXAM: US ABDOMEN LIMITED, RIGHT UPPER QUADRANT CLINICAL INDICATION: PAIN ruq TECHNIQUE: Real-time ultrasound of the right upper quadrant with image documentation. This report was created using [employer] report generation technology. COMPARISON: None. FINDINGS: LIVER: Unremarkable. There is normal echotexture. No focal hepatic lesion. No intrahepatic biliary ductal dilation. GALLBLADDER: Multiple gallstones. Gallbladder wall is within normal limits measuring 2 mm. (It was measured incorrectly by the senior cytotechnologist.) No pericholecystic fluid. Negative sonographic Patel''s sign. COMMON BILE DUCT: Mild dilation of the common bile duct. Mildly dilated at 9.3 mm. PANCREAS: Unremarkable as visualized. No focal abnormality is demonstrated in the pancreas. No pancreatic ductal dilatation. RIGHT KIDNEY: Unremarkable. There is no hydronephrosis. No shadowing calculus. No focal lesion or perinephric collection is demonstrated. US/Gallbladder IMPRESSION: 1. Cholelithiasis with no sonographic evidence of acute cholecystitis. 2. Mild dilation of the common bile duct. Correlate for any laboratory evidence of biliary obstruction which could indicate a distal common duct stone. Electronically Signed: Rc Calderon MD at 0:51 EST ,
[2022-07-22] MEDS: Ketorolac 30 MG/ML Syringe IV (23:39)
[2022-07-22] MEDS: Ondansetron 4 MG/2 ML Vial IV (23:39)
[2022-07-22] MEDS: Morphine 4 MG/ML Syringe IV (23:40)
[2022-07-22] MEDS: 0.9% Normal Saline 1,000 ML 125 ML IV (23:45)
--- NOTE | 2022-07-22 23:51 | EDS_ITS ---
HPI HPI - GI History of Present Illness Chief Complaint: Abd Pain Informant: patient Abdominal Pain/Flank Pain Onset: Yesterday Context: Gradual Onset Timing: Continuous and Waxes and wanes Quality: Aching Location: RUQ (Into right flank but less back) Current Severity: Moderate Maximum Severity: Moderate Worsened by: Nothing Relieved by: Nothing Nausea/Vomiting/Emesis GI Symptom: Negative for Nausea or Vomiting Diarrhea/Melena/Hematochezia GI Symptom: Negative for Diarrhea, Melena or Hematochezia Associated Symptoms Associated Symptoms: Negative for Dysuria, Frequency, Hematuria or Urgency Narrative Narrative: Patient has been having colicky pain in his right upper quadrant/flank for the past day or 2, thinks it may have started after a meal but he has not eaten anything since then do know if it gets worse with eating or not but the pain has not resolved. It makes him feel like he does not have an appetite but he has not been nauseated or vomiting. No fevers or chills. Sometimes he has had pain going into the right side of his back but the majority of it is more anterior lateral. States this feels like gallstone pain that he had in the past. He has not been seen for consultation for cholecystectomy. 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 Seasonal allergies Vitamin D deficiency Vitamin deficiency Home Medications lancets 28 gauge (FreeStyle Lancets) #200 ea 11/04/20 [Rx Last Taken Unknown] blood sugar diagnostic (FreeStyle Lite Strips) #100 ea 04/20/22 [Rx Last Taken Unknown] blood-glucose meter (FreeStyle Lite Meter kit) #1 ea 04/20/22 [Rx Last Taken Unknown] amlodipine 10 mg tablet 10 mg PO DAILY #90 tabs 04/24/22 [Rx Last Taken Unknown] fenofibrate nanocrystallized 48 mg tablet 48 mg PO DAILY #90 tabs 04/24/22 [Rx Last Taken Unknown] hydrochlorothiazide 25 mg tablet 25 mg PO DAILY #90 tabs 04/24/22 [Rx Last Taken Unknown] lisinopril 40 mg tablet 40 mg PO DAILY #90 tabs 04/24/22 [Rx Last Taken Unknown] rosuvastatin 10 mg tablet 10 mg PO QHS #90 tabs 04/24/22 [Rx Last Taken Unknown] sitagliptin phosphate 25 mg tablet (Januvia) 25 mg PO DAILY #90 tabs 04/24/22 [Rx Last Taken Unknown] spironolactone 25 mg tablet 25 mg PO DAILY #90 tabs 04/24/22 [Rx Last Taken Unknown] Allergy/AdvReac Type Severity Reaction Status Date / Time Penicillins [PCN] Allergy PT UNSURE Verified 07/22/22 23:07 OF REACTION Family History Father Heart disease Diabetes Liver disease Hypertension High cholesterol Grandfather Myocardial infarction Mother High cholesterol Hypertension Other Anxiety Combined hyperlipidemia Surgical History History of hand surgery Skin cancer Social History Smoking Status: Never smoker alcohol intake: current alcohol intake frequency: a few times a month substance use type: does not use what type of physical activity do you participate in: bicycling additional social history: Does not take aspirin Does not take Ibuprofen ROS ROS ED Constitutional Constitutional ED: Reports anorexia; Denies chills or fever(s) Eyes Eyes: Denies change in vision or diplopia ENT ENT ED: Denies rhinorrhea or sore throat Cardiovascular Cardiovascular: Denies chest pain or palpitations Respiratory/Chest Respiratory/Chest: Denies cough or dyspnea Gastrointestinal Gastrointestinal: Reports abdominal pain; Denies diarrhea, nausea or vomiting Genitourinary Genitourinary ED: Denies dysuria or hematuria Musculoskeletal Musculoskeletal: Denies myalgias or neck pain Integumentary Denies abscess or rash Neurologic Neurologic: Denies headache(s), paresthesias or weakness Psychiatric Psychiatric: Denies anxiety or suicidal thoughts EXAM Physical Exam Const Vital Signs: 07/22/22 23:07 Temperature 98.2 F Temperature Source Temporal Pulse Rate 96 Respiratory Rate 15 Blood Pressure 153/89 H Blood Pressure Mean 110 Pulse Ox 98 Oxygen Delivery Method Room Air Positive well nourished and well developed General Appearance ED: well developed and NAD HEENT Reports moist mucous membranes normocephalic and atraumatic Eyes PERRL and EOMs intact bilaterally Neck full ROM and supple Resp normal respiratory effort and clear to auscultation bilaterally Cardio regular rate, regular rhythm and no murmurs GI non-distended GI Narrative: Tender lateral aspect right upper quadrant. No guarding or rebound. No other areas of abdominal tenderness. Auscultation: normoactive bowel sounds Palpation: soft Back/Spine no CVA tenderness General Back: other FROM Extremity normal to inspection General Extremety ED: Negative for edema, pulses abnormal or tenderness General Extremity: Negative for edema or pulses abnormal Neuro oriented x3, CN's II-XII intact bilaterally and no sensory deficits noted Sensorium / Orientation: awake and alert Motor Exam: strength 5/5 throughout Psych mental status grossly normal and thought process normal Skin no rashes or lesions noted and no wounds MDM MDM MDM Narrative Medical decision making narrative: Feeling better after Zofran, morphine, Toradol. On reexamination, still mildly tender where he was having the pain, lateral right upper quadrant. Negative Patel. He has a leukocytosis of 14 with a leftward shift, his liver enzymes are within normal limits, kidney function similar better than prior, and urinalysis shows positive nitrite but negative for everything else, I sent that for culture but I am at a low suspicion of him having pyelonephritis or urine infection. Given his history of gallstones, we obtained a right upper quadrant ultrasound, it is consistent with cholelithiasis without radiographic signs of acute cholecystitis. My interpretation of the ultrasound agrees with that of the radiologist. However given the fact he is diabetic and has been having symptoms compatible with cholecystitis and has a leukocytosis, I discussed with Dr. Arias surgery. He evaluated patient in ER, agrees that it is possible this is not biliary but also agrees with treating him as acute calculus cholecystitis until proven otherwise, so plan is to admit him for likely surgery tomorrow. He is allergic to penicillin so we gave him Cipro down here he is clinically and hemodynamically stable. Lab Data Attestation: I reviewed the patient's lab results. Labs: Laboratory Results - last 24 hr 07/22/22 07/22/22 07/23/22 23:30 23:30 00:57 WBC 14.1 H RBC 4.75 Hgb 13.8 Hct 40.7 MCV 85.7 MCH 29.1 MCHC 33.9 RDW Std Deviation 41.1 RDW Coeff of Anna 13.2 Plt Count 263 MPV 10.9 Immature Gran % (Auto) 0.400 Neut % (Auto) 83.8 H Lymph % (Auto) 9.0 L [place] % (Auto) 6.2 Eos % (Auto) 0.4 Baso % (Auto) 0.2 Absolute Neuts (auto) 11.8 H Absolute Lymphs (auto) 1.27 Nucleated RBC % 0 Sodium 141 Potassium 3.6 Chloride 109 H Carbon Dioxide 24.0 Anion Gap 8 BUN 20 H Creatinine 1.75 H Estim Creat Clear Calc 47.23 Est GFR (MDRD) Af Amer 53 L Est GFR (MDRD) Non-Af 43 L BUN/Creatinine Ratio 11.4 Glucose 183 H Calcium 9.5 Total Bilirubin 0.30 AST 11 L ALT 28 Alkaline Phosphatase 102 Total Protein 7.7 Albumin 3.6 Globulin 4.1 Albumin/Globulin Ratio 0.9 Lipase 177 Urine Color Yellow Urine Clarity Sl. Cloudy Urine pH 6.5 Ur Specific [place] 1.020 Urine Protein 30 H Urine Glucose (UA) 50 H Urine Ketones Negative Urine Occult Blood Negative Urine Nitrite Positive H Urine Bilirubin Negative Urine Urobilinogen Normal Ur Leukocyte Esterase 25 H Urine RBC 0 SEEN Urine WBC 0 SEEN Ur Squamous Epith Cells 0 SEEN Urine Bacteria RARE Urine Mucus 0 SEEN Radiography Diagnostic Testing: Clinical Impression(s) from Imaging Studies Gallbladder Ultrasound 07/22/22 23:35 IMPRESSION: 1. Cholelithiasis with no sonographic evidence of acute cholecystitis. 2. Mild dilation of the common bile duct. Correlate for any laboratory evidence of biliary obstruction which could indicate a distal common duct stone. Electronically Signed: Rc Calderon MD at 0:51 EST , Discharge Plan Triage Chief Complaint: Abd Pain ED Provider: Blayne Hargrove Dx/Rx/DC Orders Clinical Impression: Acute calculous cholecystitis Prescriptions: No Action (DME) lancets [FreeStyle Lancets] 28 gauge misc See Rx Instructions .MEDSUPPLY Qty: 200 3RF Rx Instructions: check blood glucose daily for type 2 DM (DME) blood-glucose meter [FreeStyle Lite Meter] Kit See Rx Instructions .MEDSUPPLY Qty: 1 0RF Rx Instructions: As directed, check blood glucose daily for type 2 DM (DME) FreeStyle Lite Strips Strip See Rx Instructions .MEDSUPPLY Qty: 100 3RF Rx Instructions: check blood glucose daily for type 2 DM amlodipine 10 mg tablet 10 mg PO DAILY Qty: 90 3RF fenofibrate nanocrystallized 48 mg tablet 48 mg PO DAILY Qty: 90 3RF hydrochlorothiazide 25 mg tablet 25 mg PO DAILY Qty: 90 3RF lisinopril 40 mg tablet 40 mg PO DAILY Qty: 90 3RF rosuvastatin 10 mg tablet 10 mg PO QHS Qty: 90 3RF Januvia 25 mg tablet 25 mg PO DAILY Qty: 90 3RF spironolactone 25 mg tablet 25 mg PO DAILY Qty: 90 3RF Primary Care Provider: Cristi Serna Referrals: Cristi Serna MD [Primary Care Provider] - Disposition Disposition: Acute Care Hospital [facility]
[2022-07-22 23:53] LABS: Absolute Lymphocyte Count 1.27 X10^3/uL (0.83-4.51); Absolute Neutrophil Count 11.8 X10^3/uL (2.0-7.7); Basophil# 0.03 X10^3/uL; Basophil% 0.2 % (0-1); Eosinophil# 0.05 X10^3/uL; Eosinophils% 0.4 % (0-5); Hematocrit 40.7 % (40-54); Hemoglobin 13.8 g/dL (13.0-16.5); Lymphocyte # 1.27 X10^3/ul (0.83-4.51); Mean Corp Hgb Conc 33.9 g/dL (32-36); Mean Corpuscular Hgb 29.1 pg (27.0-32.0); Mean Corpuscular Volume 85.7 fL (80-94); Mean Platelet Vol. 10.9 fl (6.2-12.0); Monocyte# 0.87 X10^3/uL; Monocyte% 6.2 % (0-10); NRBC Flagged by Analyzer 0 % (0-5); Neutrophil # 11.78 X10^3/uL (2.7-7.7); Neutrophil % 83.8 % (47-70); Platelet Count 263 K/mm3 (150-450); RBC Distribution Width CV 13.2 % (11.6-14.6); RBC Distribution Width SD 41.1 fl (35.1-43.9); Red Blood Count 4.75 M/mm3 (4.6-6.2); White Blood Count 14.1 K/mm3 (4.4-11.0)
[2022-07-23] VITALS (15 sets, daily range): BP systolic 114–135; BP diastolic 64–85; PULSE 70–82; RESP 16–18; TEMP 36.1–37; O2SAT 92–98; BMI 36.1
--- NOTE | 2022-07-23 | GALL_PTH ---
PATIENT: UMER PACE Jr. LOC: MS3 U#:[id number] AGE/SX: 51/M ROOM: [facility] [place] RE07/23/[address]: Dr. Irwin Arias MD : 1970 BED: 1 DIS: 07/24/2022 SPEC #: [id number] RECD: 07/23/22 14:24 STATUS: MAYTE TOSHIA #: [id number] CB: 07/23/22 00:[address]: Irwin Arias DEPT: SURGICAL PATHOLOGY RECD BY: Jason Terrazas ENTERED: 07/24/22 09:10 SP TYPE: DALILA ANDERSON DR: Dr. Cristi Serna MD Tissues: A - Gallbladder, NOS B - Soft tissues, NOS Procedures: Surgery Specimen Level III HEADER OPERATION: Laparoscopic cholecystectomy with IOC, excision of abdominal mass PRE-OP DIAGNOSIS: Cholelithiasis, mild dilation of common bile duct TISSUE SUBMITTED: A ? Gallbladder and gallstone, B ? Left upper quadrant lipoma mass MICROSCOPIC DIAGNOSIS A. Gallbladder, cholecystectomy: Acute and chronic cholecystitis and cholelithiasis with denudation of mucosa. B. Left upper quadrant mass, excision: Mature adipose tissue consistent with lipoma. AM:girish 07/25/2022 MICROSCOPIC DESCRIPTION Slides are reviewed. GROSS DESCRIPTION A - Received is one container labeled with the patient's name and designated gallbladder, gallstone. The specimen consists of a portion of gallbladder consisting of fundus measuring 5 cm in length and up to 3 cm in diameter. The serosa is congested and hemorrhagic. Also present in the container are multiple pieces of soft tissue measuring in aggregate 3 x 2.5 x 1 cm. No obvious cystic duct could be identified. Also present in the container is an ovoid brown-black stone measuring 3 cm in greatest dimension. The mucosa is congested and hemorrhagic. No bile is noted. The gallbladder wall measures up to 0.5 cm in thickness. Reporting Specialist sections are submitted in two cassettes. B - Received in fixative is one container labeled with the patient's name and designated left upper quadrant lipoma mass. The specimen consists of an irregular piece of yellow adipose tissue measuring 2 x 1 x 1 cm. Sections reveal yellow adipose cut surfaces without area of hemorrhage, necrosis or cystic degeneration. The entire specimen is submitted in one cassette. / SJ:girish 07/24/2022 TC:2 CPT: 52253 x2
[2022-07-23 00:10] LABS: ALB/GLOB Ratio 0.9 RATIO (0.9-2.4); AST(SGOT) 11 U/L (15-37); Alanine Aminotransfer ALT/SGPT 28 U/L (16-61); Albumin, Serum 3.6 g/dL (3.2-5.0); Alkaline Phosphatase 102 U/L (45-117); Anion Gap 8 (5-15); BUN 20 mg/dL (7-18); BUN/Creat Ratio 11.4 RATIO (10-20); Calcium,Total 9.5 mg/dL (8.5-10.1); Chloride 109 mmol/L (98-107); Creatinine, Serum 1.75 mg/dL (0.70-1.30); EST Glomerular Filtration Rate 43 mL/min (>60); Est Glom Filt Rate - Afr Amer 53 mL/min (>60); Estimated Creatinine Clearance 47.23 ml/min; Globulin 4.1 g/dL (2.2-4.2); Glucose 183 mg/dL (74-106); Lipase 177 U/L (73-393); Potassium 3.6 mmol/L (3.5-5.1); Protein, Total 7.7 g/dL (6.4-8.2); Sodium Level 141 mmol/L (136-145)
[2022-07-23 01:08] LABS: Mucous, Urine 0 SEEN /hpf (<or=2+); Red Blood Cells-Urine 0 SEEN /hpf (0-5); Squamous Epithelial Cells - UA 0 SEEN /hpf (0-5); White Blood Cells 0 SEEN /hpf (0-5)
[2022-07-23 01:14] LABS: Color, Urine Yellow (Yellow); Glucose, Dipstick 50 mg/dl (Normal); Ketone-Dipstick Negative (Negative); Leukocyte Esterase-Dipstick 25 /ul (Negative); Nitrite-Dipstick Positive (Negative); Occult Blood-Urine Negative /ul (Negative); Protein-Dipstick 30 mg/dl (Negative); Urine Bilirubin Dipstick Negative (Negative); Urine Clarity Sl. Cloudy (Clear); Urine Urobilinogen Normal (Normal); Urine pH 6.5 (5.0 - 8.0)
[2022-07-23 01:33] LABS: Bacteria RARE /hpf (None Seen)
--- NOTE | 2022-07-23 03:37 | PCM.HP.STD ---
HPI - General General Date of Admission: 07/23/22 Date of Service: 07/23/22 Chief Complaint: Right upper quadrant abdominal pain HPI Narrative UMER PACE, is a 51 M who presents to [facility] with his after experiencing severe right upper quadrant pain 2 nights ago that kept him up all night. He states that he actually started with the pain following a brunch, but that it intensified following a dinner of chicken pot pie. He then spent the entire evening awake from the pain, but the following morning it gradually improved until it recurred last evening. He denies any associated nausea vomiting or fevers or chills with this discomfort. He states that his bowel movements?previously normal?have been fewer recently. He notes that he has had this pain in the past and estimates that he had it 4 times in the last year, 2 times in the year prior, and 2 times in the year prior to that. He states that he is well aware of a diagnosis of gallstones from a CAT scan done in 2017, but that his pain always seemed to improve spontaneously. ER work-up is notable for CBC with leukocytosis and left shift. Right upper quadrant ultrasound demonstrates relatively normal gallbladder with normal gallbladder wall thickness and no pericholecystic fluid, but did find a common bile duct with a diameter of 9 mm. Significantly no LFT or alkaline phosphatase derangements are present. Patient confirms a history of diabetes or borderline diabetes which he is treated for with Januvia. He states that the intent to treat was in part prompted by the fact that he has concurrent kidney problems with a diagnosis of CKD 3. He also confirms a history of hypertension. He notes that he has undergone a 50 pound weight loss over the last 6 months that has been intentional. Patient's only prior surgical history of the abdomen is removal of a fatty growth from that has abdominal wall in his right upper quadrant by Dr. Michel 20 some years ago. 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 Seasonal allergies Vitamin D deficiency Vitamin deficiency Home Medications amlodipine 10 mg tablet 10 mg PO DAILY Check with primary doctor 07/23/22 [History Last Taken Unknown] blood sugar diagnostic (FreeStyle Lite Strips) 07/23/22 [History Last Taken Unknown] blood-glucose meter (FreeStyle Lite Meter kit) 07/23/22 [History Last Taken Unknown] hydrochlorothiazide 25 mg tablet 25 mg PO DAILY Check with primary doctor 07/23/22 [History Last Taken Unknown] lancets 28 gauge (FreeStyle Lancets) 07/23/22 [History Last Taken Unknown] lisinopril 40 mg tablet 20 mg PO DAILY Check with primary doctor 07/23/22 [History Last Taken Unknown] rosuvastatin 10 mg tablet 10 mg PO QHS Check with primary doctor 07/23/22 [History Last Taken Unknown] sitagliptin phosphate 25 mg tablet (Januvia) 25 mg PO DAILY Check with primary doctor 07/23/22 [History Last Taken Unknown] Allergy/AdvReac Type Severity Reaction Status Date / Time Penicillins [PCN] Allergy PT UNSURE Verified 07/22/22 23:07 OF REACTION Family History Father Heart disease Diabetes Liver disease Hypertension High cholesterol Grandfather Myocardial infarction Mother High cholesterol Hypertension Other Anxiety Combined hyperlipidemia Surgical History History of hand surgery Skin cancer Social History Smoking Status: Never smoker alcohol intake: current alcohol intake frequency: a few times a month substance use type: does not use what type of physical activity do you participate in: bicycling additional social history: Does not take aspirin Does not take Ibuprofen ROS Constitutional Constitutional: Reports change in weight and weight loss; Denies chills or fever(s) Gastrointestinal Gastrointestinal: Reports abdominal pain and constipation; Denies nausea or vomiting Musculoskeletal Musculoskeletal: Denies back pain Vital Signs Vital Signs Vital Signs: 07/22/22 23:07 Temperature 98.2 F Temperature Source Temporal Pulse Rate 96 Respiratory Rate 15 Blood Pressure 153/89 H Blood Pressure Mean 110 Pulse Ox 98 Oxygen Delivery Method Room Air Weight Weight: 239 lb Body Mass Index (BMI) 36.3 Physical Exam Const alert, oriented x3, no apparent distress and well nourished Resp normal respiratory effort GI GI Narrative: Obesity present, well-healed scar of the right upper quadrant, nondistended, soft. Tenderness with palpation present in the right upper quadrant with involuntary guarding. Technically negative Patel sign. Patient does have several subcutaneous lesions that seem to represent subcutaneous lipomas. One is present within the vicinity of the subxiphoid space. Results Lab / Micro Data Result Diagrams: 07/22/22 23:30 07/22/22 23:30 Labs: Laboratory Results - last 24 hr 07/22/22 23:30: WBC 14.1 H, RBC 4.75, Hgb 13.8, Hct 40.7, MCV 85.7, MCH 29.1, MCHC 33.9, RDW Std Deviation 41.1, RDW Coeff of Anna 13.2, Plt Count 263, MPV 10.9, Immature Gran % (Auto) 0.400, Neut % (Auto) 83.8 H, Lymph % (Auto) 9.0 L, [place] % (Auto) 6.2, Eos % (Auto) 0.4, Baso % (Auto) 0.2, Absolute Neuts (auto) 11.8 H, Absolute Lymphs (auto) 1.27, Nucleated RBC % 0 07/22/22 23:30: Sodium 141, Potassium 3.6, Chloride 109 H, Carbon Dioxide 24.0, Anion Gap 8, BUN 20 H, Creatinine 1.75 H, Estim Creat Clear Calc 47.23, Est GFR (MDRD) Af Amer 53 L, Est GFR (MDRD) Non-Af 43 L, BUN/Creatinine Ratio 11.4, Glucose 183 H, Calcium 9.5, Total Bilirubin 0.30, AST 11 L, ALT 28, Alkaline Phosphatase 102, Total Protein 7.7, Albumin 3.6, Globulin 4.1, Albumin/Globulin Ratio 0.9, Lipase 177 07/23/22 00:57: Urine Color Yellow, Urine Clarity Sl. Cloudy, Urine pH 6.5, Ur Specific [place] 1.020, Urine Protein 30 H, Urine Glucose (UA) 50 H, Urine Ketones Negative, Urine Occult Blood Negative, Urine Nitrite Positive H, Urine Bilirubin Negative, Urine Urobilinogen Normal, Ur Leukocyte Esterase 25 H, Urine RBC 0 SEEN, Urine WBC 0 SEEN, Ur Squamous Epith Cells 0 SEEN, Urine Bacteria RARE, Urine Mucus 0 SEEN Radiology Impression Gallbladder Ultrasound 07/22/22 23:35 IMPRESSION: 1. Cholelithiasis with no sonographic evidence of acute cholecystitis. 2. Mild dilation of the common bile duct. Correlate for any laboratory evidence of biliary obstruction which could indicate a distal common duct stone. Electronically Signed: Rc Calderon MD at 0:51 EST , Assessment & Plan Assessment/Plan (1) Acute calculous cholecystitis: PLAN: This is a 51-year-old male, with past history of diabetes and CKD 3, who presents for acute onset right upper quadrant abdominal pain beginning 2 nights ago. This pain initially partially remitted, but then returned and patient decided to seek evaluation. He states this is at least the eighth occurrence of this discomfort over the past 3 years. However, his ER work-up today shows a leukocytosis with left shift and persistent voluntary guarding with his abdominal exam. His right upper quadrant ultrasound is read as largely normal outside of a mildly dilated common bile duct measured at over 9 mm. However, based on patient's age this actually represents a doubling of normal dimensions. Further, there appears to be a hyperechoic structure within the gallbladder lumen causing posterior shadowing and measures over 2 cm and diameter. Despite measurements by the technologist, this is not commented on by radiology and it is difficult to determine whether this represents a large gallstone versus a gallbladder polyp. With either, the recommendation is cholecystectomy. All of this information has been shared with patient and his spouse and I recommended we proceed with inpatient admission, laparoscopic cholecystectomy with intraoperative cholangiogram at first OR availability. Patient and his spouse expressed understanding of this information and are in agreement. We also discussed post procedure care expectations. Neuro: As needed Dilaudid Pulm/CV: No current issues, home amlodipine, monitor blood pressure given history of hypertension FEN/GI: Daily electrolytes, monitor creatinine given history of CKD 3, maintenance IV fluids, n.p.o. now in anticipation of surgery : No current issues Heme/ID: Trend CBC, initiate ciprofloxacin 400 mg twice daily empirically given allergy to penicillins Endo: Every 6 POC glucose checks, low-dose insulin sliding scale Proph: Apply SCDs Dispo: Admit to inpatient (2) Lipoma of abdominal wall: PLAN: Patient with several small lipomatous masses of his abdominal wall that are asymptomatic. However, 1 of these masses resides in the subxiphoid position directly deep to where I normally place one of my incisions for cholecystectomy. Therefore, I have offered to perform an excision of lipoma during procedure. Patient is accepting of this offer and wishes to have this added to the surgical consent. PLAN: Plan Excision Charges/Coding Visit Charges Inpatient E&M: 56464 Init Hosp L2
[2022-07-23] MEDS: 0.9% Normal Saline 1,000 ML 125 ML IV ×3 (03:55→22:15)
[2022-07-23] MEDS: Ciprofloxacin 400 MG/200 ML BAG 200 MG IV ×3 (03:59→22:15)
--- NOTE | 2022-07-23 05:38 | EKG12_ITS ---
Test Reason : PRE-OP Blood Pressure : / mmHG Vent. Rate : 078 BPM Atrial Rate : 078 BPM P-R Int : 162 ms QRS Dur : 088 ms QT Int : 392 ms P-R-T Axes : 011 068 016 degrees QTc Int : 446 ms Normal sinus rhythm Normal ECG When compared with ECG of 16-DEC-2019 09:41, No significant change was found Confirmed by FELIZ KEN, FREDI ([id number]), marketing editor MAGDA ROJAS ([id number]) on 07/24/2022 8:42:55 AM Referred By: CAIO AGUILERA Confirmed By:FREDI PIPER MD
[2022-07-23] MEDS: HYDROmorphone 0.5 MG/0.5 ML SYRINGE IV ×2 (06:15→16:21)
--- NOTE | 2022-07-23 07:27 | RAD_ITS ---
STUDY: INTRAOPERATIVE CHOLANGIOGRAM. REASON FOR EXAM: Male, 51 years old. LAP [facility]RIAN FLUOROSCOPY TIME (if supplied): ( 48.7 seconds ) minutes/seconds. A single loop of 222 images was submitted. TECHNIQUE: An intraoperative Cholangiogram was performed by the surgeon. Imaging was submitted. COMPARISON: None. FINDINGS: There is dilatation of the central intrahepatic biliary ducts as well as the common bile duct. There is narrowing of the distal portion of the common bile duct. Contrast is seen entering the duodenum. RAD/Cholangiogram/ O R,Initial IMPRESSION: Dilated intra and extrahepatic biliary ducts with narrowing of the distal portion of the common bile duct. Contrast is seen entering the duodenum. Electronically Signed: Alan Wren MD at 12:43 EST ,
[2022-07-23 08:18] LABS: Hemoglobin A1c 5.5 % (3.8-5.6)
[2022-07-23] MEDS: Lactated Ringers 1,000 ML 15 ML IV (08:41)
--- NOTE | 2022-07-23 10:29 | CASEMGMT ---
BRIAN CM in to pt room to perform assessment, pt is off of the floor at this time.
--- NOTE | 2022-07-23 12:01 | OP.PCM_ITS ---
Problems Associated Problem List Diagnoses (1) Acute calculous cholecystitis: Report of Operation Date of Procedure: 07/23/22 Pre-Operative Diagnosis: Cholecystitis Post-Operative Diagnosis: Severe acute on chronic cholecystitis with large gallstone Surgery/Procedure Performed:: 1. Laparoscopic cholecystectomy with intraoperative cholangiogram 2. Excision of lipoma Surgeon: Irwin Arias teacher of the handicapped: Enrique Moore teacher of the handicapped: Miguelangel Fuller Type of Anesthesia: General/Supplemental Anesthesiologist: Uri Osorio Specimen's removed: 1. Gallbladder 2. Left upper quadrant lipomatous mass Drains: 15 Cook Islander NANDO to right upper quadrant Estimated Blood Loss (mL): 100 Description of Procedure: After proper identification in the preoperative holding area the patient was brought to the operating room where positioned supine on the operating room table. Preoperatively SCDs were placed and antibiotics were administered. General anesthesia was then induced. Patient's abdomen was prepped and draped in usual sterile fashion. A formal timeout was conducted to confirm both patient and the procedure. Procedure was begun with a supraumbilical incision which was extended deeply down to the level of the fascia. The fascia was elevated and incised, as well as the peritoneum. A finger sweep was performed to ensure there were no underlying adhesions and a 12 mm balloon trocar was i nserted. Pneumoperitoneum was established at 15 mmHg. 3 additional trocars were placed in the epigastrium (12 mm) and in the right upper quadrant (2 x 5 mm). Inspection of the peritoneum revealed no inadvertent injury to the viscera below. The gallbladder was not able to be immediately visualized secondary to a large amount of omentum clumping over the gallbladder. Very carefully this omentum was taken off the gallbladder surface using blunt dissection and limited electrocautery. Initially the duodenum was pulled up into this inflammatory process as well, but releasing several additional adhesions allowed to return to its normal position. As I tried to grasping gallbladder, this proved impossible given the firm, inflammatory nature of the gallbladder fundus and body. It became quickly apparent that this was secondary to a very large stone burden within the gallbladder. As I moved more proximally, I identified what appeared to be a very dilated cystic duct terminating into a very dilated common bile duct and potentially the portal vein, but boundaries of this anatomy could not be clearly distinguished. I attempted to see if further dissection of the gallbladder from the gallbladder fossa and a dome down technique would be beneficial for identifying this anatomy, but found that I could not retract the gallbladder anteriorly given the limited mobility with the large stone and found the gallbladder to be deeply invaginated within the gallbladder fossa. On reaching these conclusions, I requested the assistance of my partner, Dr. Fuller, who graciously excepted him presented to the OR. Together we used the laparoscopic LigaSure device to perform a cholecystotomy and remove a 3 cm gallstone from the gallbladder. A Endo Catch bag was placed through the patient's umbilical port and the gallbladder stone was secured within this bag before proceeding with the rest of the case. The gallbladder infundibulum was then grasped and elevated cephalad. Still, the patient's anatomy remained ambiguous. To better define this anatomy, we placed a Pike clamp across the gallbladder neck and obtained a cholangiogram which showed a tortuous and dilated cystic duct beginning right where our needle catheter inserted terminating in a very dilated common bile duct. There was a slight delay, but appeared to be unobstructed antegrade flow of contrast into the duodenum (potentially a stricture near the ampulla). There was also retrograde flow through the common hepatic duct into the right and left hepatic ducts. With this result, the cholangiocatheter was withdrawn and the Pike clamp removed. I was able to define the crotch between the inferior border of the gallbladder and the cystic duct. Bluntly I opened the space and clipped the cystic duct using a 12 mm clip community education coordinator with 2 titanium clips. I then attempted to dissect out what I presume to be the cystic artery, but this proved to be densely adherent to the gallbladder body and was not easily . Therefore I dissected parallel to the presumed course of this artery to create more space between the gallbladder and the liver and divided this artery distally with the use of our laparoscopic LigaSure device. I attempted additional dissection medially and laterally along the gallbladder fossa, but found the back wall of the gallbladder densely adherent to the gallbladder fossa?likely owing from the previously impacted gallstone. With this difficulty, I sharply transected the cystic duct and was able to visualize posteriorly there was a significant rind/cast of inflammatory tissue that was bluntly dissected towards the cystic plate. I then gradually was able to provide traction of the gallbladder away from the gallbladder fossa and use electrocautery to fully remove the gallbladde r. Selective electrocautery was used to obtain hemostasis in the gallbladder fossa. The gallbladder was placed in an Endo Catch bag and?along with the previously secured gallstone?was removed from the peritoneum. Morison's pouch was irrigated and the effluent was suctioned free of the peritoneum. Hemostasis was again confirmed. A 15 Cook Islander round Alec drain was fed in to the peritoneum [in order to observe for any bile given the dilation of the biliary tree] via the subxiphoid port site and grasped the of the right upper quadrant port site at the drainage tubing. Laparoscopic graspers were used to position the drain in Morison's pouch as well as along the inferior border of the liver. The drain was tied in at the skin using 3-0 nylon suture. Pneumoperitoneum was evacuated and the fascia of the 12 mm port sites was closed with #1Vicryl in a [id number] fashion. Local anesthetic was injected at the port sites for postoperative pain control. I then moved to the patient's left upper quadrant?approximately 4 cm lateral to my subxiphoid port site and performed a local block of the skin overlying the patient's lipoma. A 3 cm incision was made in this location and carried down to the subcutaneous layer. I quickly palpated in the lipomatous mass and grasped this with a Allis clamp. Limited blunt dissection was used to deliver this free of the cavity. The cavity was then closed with a deep layer of 3-0 Vicryl. The skin of each port site and this lipoma cavity were then closed in subcuticular fashion using 4-0 Monocryl. Steri-Strips and bandages were applied as gadiel ssings. Patient tolerated the procedure well without any apparent complications. On emergence from their anesthetic the patient was taken to PACU for ongoing recovery. Complications None Admit VTE Documentation VTE Mechan Device Prophylaxis: SCD's
[2022-07-23 13:36] LABS: Bedside Glucose 220 mg/dL (74-106)
--- NOTE | 2022-07-23 15:15 | CASEMGMT ---
BRIAN TURNER Assessment: Face to Face with pt for initial transition planning/care coordination assessment. RN YUE introduced self and role at [facility], pt voices understanding and consents to assessment. Pt is A/O x4 and answers all questions appropriately at this time. Pt lying in bed in no distress. Care providers, pharmacy, and demographics verified/updated. Admitting Dx: cholecystitis PCP:Daphne Specialists:Fork Operator, pt cannot recall name currently. Preferred Pharmacy: [facility] Insurance: MMO Prescription Benefit: yes LNOK: Corby Peoples, dtr; Herman Ko, son Living Arrangements: Pt lives alone in a two story house with 2 steps to enter. Pt reports he is I in ADL's and denies concerns at home. Transportation: Pt drives self and denies concerns with transportation. DME/HHC/SNF: Pt denies having any DME in the home, previous HHC or SNF stays. Pt states no concerns with going home at time of dc. Pt states no further concerns/needs. CM to follow. Advised pt to ask CM if any further question/concerns/needs arise, voices understanding. Pt Goal: Home Plan: Home
[2022-07-23] MEDS: Insulin Lispro 100 UNIT/ML INSULN.PEN SC (16:20)
[2022-07-23] MEDS: 0.9% Saline Lock 10 ML Syringe IV (16:21)
[2022-07-23 17:15] LABS: Bedside Glucose 223 mg/dL (74-106)
[2022-07-23] MEDS: Ibuprofen 400 MG Tablet PO (18:08)
[2022-07-23] MEDS: Acetaminophen 500 MG Tablet PO (20:41)
[2022-07-23] MEDS: Atorvastatin Calcium 20 MG Tablet PO (22:19)
[2022-07-23 22:45] LABS: Bedside Glucose 174 mg/dL (74-106)
[2022-07-24] VITALS (9 sets, daily range): BP systolic 110–130; BP diastolic 55–71; PULSE 63–74; RESP 18–22; TEMP 36.4–37; O2SAT 86–98
[2022-07-24] MEDS: Ibuprofen 400 MG Tablet PO ×4 (00:27→17:15)
[2022-07-24] MEDS: 0.9% Normal Saline 1,000 ML 125 ML IV (06:14)
[2022-07-24] MEDS: oxyCODONE 5 MG Tablet PO ×2 (06:17→12:16)
[2022-07-24 07:16] LABS: Bedside Glucose 105 mg/dL (74-106)
[2022-07-24 07:22] LABS: Absolute Lymphocyte Count 1.28 X10^3/uL (0.83-4.51); Absolute Neutrophil Count 9.8 X10^3/uL (2.0-7.7); Basophil# 0.02 X10^3/uL; Basophil% 0.2 % (0-1); Eosinophil# 0.04 X10^3/uL; Eosinophils% 0.3 % (0-5); Hematocrit 36.7 % (40-54); Hemoglobin 11.9 g/dL (13.0-16.5); Lymphocyte # 1.28 X10^3/ul (0.83-4.51); Lymphocyte % 10.6 % (19-41); Mean Corp Hgb Conc 32.4 g/dL (32-36); Mean Corpuscular Hgb 29.1 pg (27.0-32.0); Mean Corpuscular Volume 89.7 fL (80-94); Mean Platelet Vol. 11.7 fl (6.2-12.0); Monocyte# 0.89 X10^3/uL; Monocyte% 7.4 % (0-10); NRBC Flagged by Analyzer 0 % (0-5); Neutrophil # 9.81 X10^3/uL (2.7-7.7); Neutrophil % 81.1 % (47-70); Platelet Count 209 K/mm3 (150-450); RBC Distribution Width CV 13.2 % (11.6-14.6); RBC Distribution Width SD 43.7 fl (35.1-43.9); Red Blood Count 4.09 M/mm3 (4.6-6.2); White Blood Count 12.1 K/mm3 (4.4-11.0)
[2022-07-24 07:55] LABS: ALB/GLOB Ratio 0.8 RATIO (0.9-2.4); AST(SGOT) 236 U/L (15-37); Alanine Aminotransfer ALT/SGPT 417 U/L (16-61); Albumin, Serum 2.8 g/dL (3.2-5.0); Alkaline Phosphatase 172 U/L (45-117); Anion Gap 8 (5-15); BUN 22 mg/dL (7-18); BUN/Creat Ratio 11.6 RATIO (10-20); Calcium,Total 8.6 mg/dL (8.5-10.1); Chloride 109 mmol/L (98-107); Creatinine, Serum 1.89 mg/dL (0.70-1.30); EST Glomerular Filtration Rate 40 mL/min (>60); Est Glom Filt Rate - Afr Amer 48 mL/min (>60); Estimated Creatinine Clearance 43.73 ml/min; Globulin 3.6 g/dL (2.2-4.2); Glucose 105 mg/dL (74-106); Potassium 4.2 mmol/L (3.5-5.1); Protein, Total 6.4 g/dL (6.4-8.2); Sodium Level 141 mmol/L (136-145)
--- NOTE | 2022-07-24 09:23 | PCM.DC ---
Discharge Instructions Diet Discharge Diet: Light diet - advance as tolerated Activity Discharge Activity: May Not Drive (for 3-5 days) May shower in (days): 2 Lifting Restrictions: 15 pounds for 3 weeks Dressing / Incision Call your doctor if your incision/area has: Continuous Slow Oozing, Sudden Increased Bleeding, Increased Pain/ Swelling, Increased Redness, Foul Smelling Discharge and Swelling at the incision site Call your doctor if you observe: Fever of 101 or Higher Suture Line Care: Avoid Pulling/Pushing and Avoid Pinching/Bending Remove Dressing in: 2 days Cleanse incision/area with: Soap & Water Additional Dressing/Incision Instructions:: Remove plastic dressings in 2 days. Leave steri-strips in place for 1 week. Keep drain site covered until completely closed. Follow Up Care Please Follow Up With: Irwin Arias MD When: 1 week. Please call [phone] Test Results: Test results from this visit will be discussed in further detail at your follow-up appointment, if applicable. Discharge Plan Admission Admit Date/Time: 07/23/22 03:58 Primary Reason for Your Visit: Acute cholecystitis with calculous Attending Provider: Irwin Arias Primary Care Provider: Cristi Serna Instructions Additional Instructions / Restrictions: Advance diet as tolerated. Recommend alternating narcotic pain medication with Tylenol as needed for pain You may need a stool softener or laxative to assist with bowel movements. We would recommend Miralax daily or twice daily to assist with bowel movements. Recommend no lifting greater than 15 pounds for 3 weeks Follow-up with our office in 1 week Discharge Orders/Prescriptions Prescriptions: New oxycodone 5 mg Tablet 5 mg PO Q6H PRN PRN (Reason: Pain Score 6-10) 5 Days Qty: 20 0RF Continued amlodipine 10 mg tablet 10 mg PO DAILY hydrochlorothiazide 25 mg tablet 25 mg PO DAILY lisinopril 40 mg tablet 20 mg PO DAILY rosuvastatin 10 mg tablet 10 mg PO QHS Januvia 25 mg tablet 25 mg PO DAILY No Action (DME) FreeStyle Lite Strips Strip See Rx Instructions MISCELLANEOUS .MEDSUPPLY Rx Instructions: check blood glucose daily for type 2 DM (DME) blood-glucose meter [FreeStyle Lite Meter] Kit See Rx Instructions MISCELLANEOUS .MEDSUPPLY Rx Instructions: As directed, check blood glucose daily for type 2 DM (DME) lancets [FreeStyle Lancets] 28 gauge misc See Rx Instructions MISCELLANEOUS Rx Instructions: check blood glucose daily for type 2 DM Other Ambulatory Orders: Comprehensive Metabolic Profil (Routine) Timeframe: 1 Week Facility: [facility] - Location: Laboratory, [facility] Ordered By: Liza RODRIGUEZ Referrals / Follow Up: Cristi Serna MD [Primary Care Provider] - Irwin Arias MD [Med Staff - Active Staff] - (Follow-up with our office in 1 week. Please contact our office for an appointment. ) Disposition Disposition (needs filled in before D/C Order can be placed): Home, Self Care
--- NOTE | 2022-07-24 09:26 | PCM.DC.SUM ---
Providers Date of Admission: 07/23/22 Primary Care Physician: Dr. Cristi Serna MD Reason For Visit: CHOLECYSTITIS Diagnosis Discharge Diagnosis (1) Acute calculous cholecystitis: Status: Acute Code(s): K80.00 - Calculus of gallbladder with acute cholecystitis without obstruction (2) Lipoma of abdominal wall: Status: Acute Code(s): D17.1 - Benign lipomatous neoplasm of skin and subcutaneous tissue of trunk Medications at Discharge Home Medications amlodipine 10 mg tablet 10 mg PO DAILY bp 07/23/22 blood sugar diagnostic (FreeStyle Lite Strips) 07/23/22 blood-glucose meter (FreeStyle Lite Meter kit) 07/23/22 hydrochlorothiazide 25 mg tablet 25 mg PO DAILY bp 07/23/22 lancets 28 gauge (FreeStyle Lancets) 07/23/22 lisinopril 40 mg tablet 20 mg PO DAILY BP 07/23/22 rosuvastatin 10 mg tablet 10 mg PO QHS cholesterol 07/23/22 sitagliptin phosphate 25 mg tablet (Januvia) 25 mg PO DAILY diabetes 07/23/22 oxycodone 5 mg tablet 5 mg PO Q6H PRN PRN Pain Score 6-10 5 days #20 tabs 07/24/22 Hospital Course Operations cholecystecomy (with NANDO drain placement) Summary of Care Provided Minutes Spent on Discharge: 25 Hospital Course: Patient is a 51 y/o M who presented with right upper quadrant pain for the past 2 days. Patient had a WBC of 14 with a left shift. A RUQ ultrasound was ordered demonstrating cholelithiasis without evidence of acute cholecystitis. Patient was admitted given his history of diabetes and an examination consistent with acute cholecystitis with associated WBC and left shift. Dr. Arias performed a laparoscopic cholecystectomy with intraoperative cholangiograms on 07/23/22. Patient tolerated the procedure well. NANDO drain was placed during surgery. Patient had an uneventful hospitalization. Upon discharge, patient's abdominal pain had decreased and was controlled with pain medication. Patient tolerated his current diet without nausea, vomiting. Patient's vitals were stable. NANDO drain was removed at bedside. Patient will follow-up with Dr. Arias's as an outpatient in 1 week to determine return to work status and follow-up evaluation. Physical Exam Const alert, oriented x3 and no apparent distress GI soft to palpation Inspection: incision intact, healing well and other (No drainage or infection noted) and central obesity Auscultation: hypoactive bowel sounds Palpation: tender other (Slight tenderness near the incision sites) Weight / BMI Weight Weight: 237 lb 7.005 oz Body Mass Index (BMI) 36.1 ABG / Lab / Microbiology Data Result Diagrams: 07/24/22 06:20 07/24/22 06:20 Laboratory: Laboratory Results - last 24 hr 07/23/22 13:17: POC Glucose 220 H 07/23/22 16:16: POC Glucose 223 H 07/23/22 22:22: POC Glucose 174 H 07/24/22 06:13: POC Glucose 105 07/24/22 06:20: WBC 12.1 H, RBC 4.09 L, Hgb 11.9 L, Hct 36.7 L, MCV 89.7, MCH 29.1, MCHC 32.4, RDW Std Deviation 43.7, RDW Coeff of Anna 13.2, Plt Count 209, MPV 11.7, Immature Gran % (Auto) 0.400, Neut % (Auto) 81.1 H, Lymph % (Auto) 10.6 L, Wayne % (Auto) 7.4, Eos % (Auto) 0.3, Baso % (Auto) 0.2, Absolute Neuts (auto) 9.8 H, Absolute Lymphs (auto) 1.28, Nucleated RBC % 0 07/24/22 06:20: Sodium 141, Potassium 4.2, Chloride 109 H, Carbon Dioxide 24.0, Anion Gap 8, BUN 22 H, Creatinine 1.89 H, Estim Creat Clear Calc 43.73, Est GFR (MDRD) Af Amer 48 L, Est GFR (MDRD) Non-Af 40 L, BUN/Creatinine Ratio 11.6, Glucose 105, Calcium 8.6, Total Bilirubin 0.80, AST 236 H, ALT 417 H, Alkaline Phosphatase 172 H, Total Protein 6.4, Albumin 2.8 L, Globulin 3.6, Albumin/Globulin Ratio 0.8 L Radiography Diagnostic Testing: Radiology Impression Cholangiogram 07/23/22 07:27 IMPRESSION: Dilated intra and extrahepatic biliary ducts with narrowing of the distal portion of the common bile duct. Contrast is seen entering the duodenum. Electronically Signed: Alan Wren MD at 12:43 EST , D/C Instructions Discharge Diet: Light diet - advance as tolerated May shower in (days): 2 Call your doctor if your incision/area has: Continuous Slow Oozing, Sudden Increased Bleeding, Increased Pain/ Swelling, Increased Redness, Foul Smelling Discharge and Swelling at the incision site Call your doctor if you observe: Fever of 101 or Higher Suture Line Care: Avoid Pulling/Pushing and Avoid Pinching/Bending Cleanse incision/area with: Soap & Water Additional Dressing/Incision Instructions: Remove plastic dressings in 2 days. Leave steri-strips in place for 1 week Please Follow Up With: Irwin Arias MD When: 1 week. Please call [phone] Meaningful Use Info Meaningful Use Diagnoses (Choose all that apply): None applicable Discharge Plan Admission Admit Date/Time: 07/23/22 03:58 Primary Reason for Your Visit: Acute cholecystitis with calculous Attending Provider: Irwin Arias Primary Care Provider: Cristi Serna Instructions Additional Instructions / Restrictions: Advance diet as tolerated. Recommend alternating narcotic pain medication with Tylenol as needed for pain You may need a stool softener or laxative to assist with bowel movements. We would recommend Miralax daily or twice daily to assist with bowel movements. Recommend no lifting greater than 15 pounds for 3 weeks Follow-up with our office in 1 week Discharge Orders/Prescriptions Prescriptions: New oxycodone 5 mg Tablet 5 mg PO Q6H PRN PRN (Reason: Pain Score 6-10) 5 Days Qty: 20 0RF Continued amlodipine 10 mg tablet 10 mg PO DAILY hydrochlorothiazide 25 mg tablet 25 mg PO DAILY lisinopril 40 mg tablet 20 mg PO DAILY rosuvastatin 10 mg tablet 10 mg PO QHS Januvia 25 mg tablet 25 mg PO DAILY No Action (DME) FreeStyle Lite Strips Strip See Rx Instructions MISCELLANEOUS .MEDSUPPLY Rx Instructions: check blood glucose daily for type 2 DM (DME) blood-glucose meter [FreeStyle Lite Meter] Kit See Rx Instructions MISCELLANEOUS .MEDSUPPLY Rx Instructions: As directed, check blood glucose daily for type 2 DM (DME) lancets [FreeStyle Lancets] 28 gauge misc See Rx Instructions MISCELLANEOUS Rx Instructions: check blood glucose daily for type 2 DM Other Ambulatory Orders: Comprehensive Metabolic Profil (Routine) Timeframe: 1 Week Facility: [facility] - Location: Laboratory, [facility] Ordered By: Liza RODRIGUEZ Referrals / Follow Up: Cristi Serna MD [Primary Care Provider] - Irwin Arias MD [Med Staff - Active Staff] - (Follow-up with our office in 1 week. Please contact our office for an appointment. ) Disposition Disposition (needs filled in before D/C Order can be placed): Home, Self Care Charges/Coding Visit Charges Inpatient E&M: 98100 Disch Hosp (Post-op/no charge)
[2022-07-24] MEDS: amLODIPine 10 MG Tablet PO (10:00)
[2022-07-24] MEDS: Ciprofloxacin 400 MG/200 ML BAG 200 MG IV (10:00)
[2022-07-24] MEDS: hydroCHLOROthiazide 25 MG Tablet PO (10:03)
[2022-07-24] MEDS: LINAGLIPTIN 5 MG TABLET PO (10:03)
[2022-07-24] MEDS: Lisinopril 20 MG Tablet PO (10:03)
[2022-07-24 12:15] LABS: Bedside Glucose 143 mg/dL (74-106)
[2022-07-24 16:50] LABS: Bedside Glucose 112 mg/dL (74-106)
== END 2022-07-24 19:00 | disposition home or self-care (01) ==
LOC: ED 07-23 03:48 → MS3 07-23 05:20
PROVIDERS: Anesthesiology; Admitting Provider Surgery; Emergency Provider Emergency Medicine; PCP Internal Medicine; Visit Provider Surgery
PROC: (CPT 47610; principal; 2022-07-23 07:40)
DX: K80.12 Calculus of gallbladder with acute and chronic cholecystitis without obstruction (principal); E11.22 Type 2 diabetes mellitus with diabetic chronic kidney disease; N18.30 Chronic kidney disease, stage 3 unspecified; E78.00 Pure hypercholesterolemia, unspecified; I12.9 Hypertensive chronic kidney disease with stage 1 through stage 4 chronic kidney disease, or unspecified chronic kidney disease; D17.1 Benign lipomatous neoplasm of skin and subcutaneous tissue of trunk; E55.9 Vitamin D deficiency, unspecified; Z79.899 Other long term (current) drug therapy; Z79.84 Long term (current) use of oral hypoglycemic drugs
CPT/HCPCS: 47563; 11403; 74300; 76000; 76705; 80053; 81001; 82962; 83036; 83690; 85025; 87086; 88304; 93005; 96361; 96365; 96366; 96375; 96376; 99221; 99284; J7030; J7120; A4216; G0378; J0744; J2405

== ENCOUNTER → 2022-07-31 | Outpatient (CLI) | payer OTHER, SELFPAY ==
[2022-07-31 08:13] LABS: BUN 26 mg/dL (7-18); Creatinine, Serum 1.86 mg/dL (0.70-1.30); EST Glomerular Filtration Rate 41 mL/min (>60); Est Glom Filt Rate - Afr Amer 49 mL/min (>60); Glucose 117 mg/dL (74-106)
[2022-07-31 08:14] LABS: ALB/GLOB Ratio 0.7 RATIO (0.9-2.4); AST(SGOT) 28 U/L (15-37); Alanine Aminotransfer ALT/SGPT 144 U/L (16-61); Albumin, Serum 3.2 g/dL (3.2-5.0); Alkaline Phosphatase 349 U/L (45-117); Anion Gap 6 (5-15); Calcium,Total 9.5 mg/dL (8.5-10.1); Chloride 103 mmol/L (98-107); Globulin 4.9 g/dL (2.2-4.2); Potassium 3.9 mmol/L (3.5-5.1); Protein, Total 8.1 g/dL (6.4-8.2); Sodium Level 138 mmol/L (136-145)
== END | disposition home or self-care (01) ==
LOC: LAB 07:26
PROVIDERS: PCP Internal Medicine; Referring Provider Physician Assistant; Visit Provider Physician Assistant
DX: K80.00 Calculus of gallbladder with acute cholecystitis without obstruction (principal); D17.1 Benign lipomatous neoplasm of skin and subcutaneous tissue of trunk
CPT/HCPCS: 36415; 80053

== ENCOUNTER → 2022-08-10 | Outpatient (CLI) | payer OTHER, SELFPAY ==
[2022-08-10 08:22] LABS: ALB/GLOB Ratio 0.8 RATIO (0.9-2.4); AST(SGOT) 17 U/L (15-37); Alanine Aminotransfer ALT/SGPT 47 U/L (16-61); Albumin, Serum 3.3 g/dL (3.2-5.0); Alkaline Phosphatase 180 U/L (45-117); Anion Gap 7 (5-15); BUN 35 mg/dL (7-18); BUN/Creat Ratio 18.6 RATIO (10-20); Calcium,Total 9.7 mg/dL (8.5-10.1); Chloride 108 mmol/L (98-107); Creatinine, Serum 1.88 mg/dL (0.70-1.30); EST Glomerular Filtration Rate 40 mL/min (>60); Est Glom Filt Rate - Afr Amer 48 mL/min (>60); Globulin 4.4 g/dL (2.2-4.2); Glucose 124 mg/dL (74-106); Potassium 4.1 mmol/L (3.5-5.1); Protein, Total 7.7 g/dL (6.4-8.2); Sodium Level 143 mmol/L (136-145)
== END | disposition home or self-care (01) ==
LOC: LAB 07:28
PROVIDERS: PCP Internal Medicine; Referring Provider Surgery; Visit Provider Surgery
DX: R89.9 Unspecified abnormal finding in specimens from other organs, systems and tissues (principal)
CPT/HCPCS: 36415; 80053

== ENCOUNTER → 2022-10-16 | Outpatient (CLI) | payer OTHER, SELFPAY ==
[2022-10-16 10:46] LABS: Hematocrit 44.8 % (40-54); Hemoglobin 14.8 g/dL (13.0-16.5); Mean Corpuscular Hgb 27.5 pg (27.0-32.0); Mean Corpuscular Volume 83.3 fL (80-94); Mean Platelet Vol. 10.7 fl (6.2-12.0); Platelet Count 280 K/mm3 (150-450); RBC Distribution Width CV 14.1 % (11.6-14.6); RBC Distribution Width SD 42.5 fl (35.1-43.9); Red Blood Count 5.38 M/mm3 (4.6-6.2); White Blood Count 9.2 K/mm3 (4.4-11.0)
[2022-10-16 10:53] LABS: Protein, Urine (Random) 36.3 mg/dL (<11.9); Protein:Creat Ratio 182 mg/g CRE (0-200)
[2022-10-16 11:05] LABS: PTHIN 88.2 pg/mL (18.4-80.1)
[2022-10-16 11:06] LABS: Albumin, Serum 3.5 g/dL (3.2-5.0); BUN 28 mg/dL (7-18); BUN/Creat Ratio 14.6 RATIO (10-20); Calcium,Total 9.1 mg/dL (8.5-10.1); Chloride 108 mmol/L (98-107); Creatinine, Serum 1.92 mg/dL (0.70-1.30); EST Glomerular Filtration Rate 39 mL/min (>60); Est Glom Filt Rate - Afr Amer 47 mL/min (>60); Glucose 152 mg/dL (74-106); Phosphorus 3.1 mg/dL (2.5-4.9); Potassium 3.6 mmol/L (3.5-5.1); Sodium Level 140 mmol/L (136-145)
[2022-10-16 11:09] LABS: Vitamin D,25 Hydroxy 30.8 ng/mL
== END | disposition home or self-care (01) ==
LOC: LAB 10:08
PROVIDERS: PCP Internal Medicine; Referring Provider Internal Medicine Nephrology; Visit Provider Internal Medicine Nephrology
DX: Z13.0 Encounter for screening for diseases of the blood and blood-forming organs and certain disorders involving the immune mechanism (principal); N25.81 Secondary hyperparathyroidism of renal origin; N18.31 Chronic kidney disease, stage 3a; E55.9 Vitamin D deficiency, unspecified
CPT/HCPCS: 36415; 80069; 82306; 82570; 83970; 84156; 85027

== ENCOUNTER → 2023-05-03 | Outpatient (CLI) | payer OTHER, SELFPAY ==
[2023-05-03 08:53] LABS: Protein, Urine (Random) 26.5 mg/dL (<11.9); Protein:Creat Ratio 158 mg/g CRE (0-200)
[2023-05-03 09:09] LABS: Anion Gap 4 (5-15); BUN 30 mg/dL (7-18); BUN/Creat Ratio 15.4 RATIO (10-20); Chloride 107 mmol/L (98-107); Creatinine, Serum 1.95 mg/dL (0.70-1.30); EST Glomerular Filtration Rate 38 mL/min (>60); Est Glom Filt Rate - Afr Amer 46 mL/min (>60); Glucose 145 mg/dL (74-106); Potassium 3.7 mmol/L (3.5-5.1); Sodium Level 137 mmol/L (136-145)
== END | disposition home or self-care (01) ==
PROVIDERS: PCP Internal Medicine; Referring Provider Internal Medicine Nephrology; Visit Provider Internal Medicine Nephrology
DX: N18.32 Chronic kidney disease, stage 3b (principal)
CPT/HCPCS: 36415; 80048; 82570; 84156

== ENCOUNTER → 2023-07-09 | Outpatient (CLI) | payer OTHER, SELFPAY ==
[2023-07-09 12:15] LABS: Absolute Lymphocyte Count 1.84 X10^3/uL (0.83-4.51); Absolute Neutrophil Count 8.9 X10^3/uL (2.0-7.7); Basophil# 0.08 X10^3/uL; Basophil% 0.6 % (0-1); Eosinophil# 1.29 X10^3/uL; Hematocrit 46.7 % (40-54); Hemoglobin 15.4 g/dL (13.0-16.5); Lymphocyte # 1.84 X10^3/ul (0.83-4.51); Lymphocyte % 14.3 % (19-41); Mean Corpuscular Hgb 28.4 pg (27.0-32.0); Mean Corpuscular Volume 86.2 fL (80-94); Monocyte# 0.75 X10^3/uL; Monocyte% 5.8 % (0-10); NRBC Flagged by Analyzer 0 % (0-5); Neutrophil # 8.87 X10^3/uL (2.7-7.7); Platelet Count 221 K/mm3 (150-450); RBC Distribution Width CV 14.2 % (11.6-14.6); RBC Distribution Width SD 44.6 fl (35.1-43.9); Red Blood Count 5.42 M/mm3 (4.6-6.2); White Blood Count 12.9 K/mm3 (4.4-11.0)
[2023-07-09 12:23] LABS: ALB/GLOB Ratio 0.8 RATIO (0.9-2.4); AST(SGOT) 19 U/L (15-37); Alanine Aminotransfer ALT/SGPT 57 U/L (16-61); Albumin, Serum 3.4 g/dL (3.2-5.0); Alkaline Phosphatase 120 U/L (45-117); Anion Gap 6 (5-15); BUN 31 mg/dL (7-18); Calcium,Total 9.6 mg/dL (8.5-10.1); Chloride 105 mmol/L (98-107); Cholesterol 206 mg/dL (200); Creatinine, Serum 2.07 mg/dL (0.70-1.30); EST Glomerular Filtration Rate 36 mL/min (>60); Est Glom Filt Rate - Afr Amer 43 mL/min (>60); Globulin 4.3 g/dL (2.2-4.2); Glucose 219 mg/dL (74-106); High Density Lipoprotein 36 mg/dL; Potassium 3.8 mmol/L (3.5-5.1); Protein, Total 7.7 g/dL (6.4-8.2); Sodium Level 138 mmol/L (136-145); Triglycerides 331 mg/dL; Very Low Density Lipoprotein 66 mg/dL (5-40)
[2023-07-09 12:27] LABS: Hemoglobin A1c 7.3 % (3.8-5.6)
== END | disposition home or self-care (01) ==
LOC: BIMLAB 10:19
PROVIDERS: PCP Internal Medicine; Referring Provider Physician Assistant; Visit Provider Physician Assistant
DX: I12.9 Hypertensive chronic kidney disease with stage 1 through stage 4 chronic kidney disease, or unspecified chronic kidney disease (principal); E11.22 Type 2 diabetes mellitus with diabetic chronic kidney disease; N18.30 Chronic kidney disease, stage 3 unspecified; E78.5 Hyperlipidemia, unspecified
CPT/HCPCS: 36415; 80053; 80061; 83036; 85025

== ENCOUNTER → 2023-11-15 | Outpatient (CLI) | payer OTHER, SELFPAY ==
[2023-11-15 08:37] LABS: Bacteria 0 SEEN /hpf (None Seen); Mucous, Urine 0 SEEN /hpf (<or=2+); Red Blood Cells-Urine 0 SEEN /hpf (0-5); Squamous Epithelial Cells - UA 0 SEEN /hpf (0-5); White Blood Cells 0 SEEN /hpf (0-5)
[2023-11-15 12:30] LABS: Color, Urine Yellow (Yellow); Glucose, Dipstick 1000 mg/dl (Normal); Ketone-Dipstick Negative (Negative); Leukocyte Esterase-Dipstick Negative /ul (Negative); Nitrite-Dipstick Negative (Negative); Occult Blood-Urine Negative /ul (Negative); Protein-Dipstick 15 mg/dl (Negative); Specific Gravity, Urine 1.015 (1.002-1.030); Urine Bilirubin Dipstick Negative (Negative); Urine Clarity Clear (Clear); Urine Urobilinogen Normal (Normal)
[2023-11-15 12:41] LABS: Absolute Lymphocyte Count 1.26 X10^3/uL (0.83-4.51); Absolute Neutrophil Count 5.4 X10^3/uL (2.0-7.7); Basophil# 0.04 X10^3/uL; Basophil% 0.5 % (0-1); Eosinophil# 0.31 X10^3/uL; Erythrocyte Sedimentation Rate 15 mm/hr (0-20); Hematocrit 46.5 % (40-54); Hemoglobin 15.2 g/dL (13.0-16.5); Lymphocyte # 1.26 X10^3/ul (0.83-4.51); Lymphocyte % 16.4 % (19-41); Mean Corp Hgb Conc 32.7 g/dL (32-36); Mean Corpuscular Hgb 28.1 pg (27.0-32.0); Mean Corpuscular Volume 86.1 fL (80-94); Mean Platelet Vol. 11.4 fl (6.2-12.0); Monocyte# 0.66 X10^3/uL; Monocyte% 8.6 % (0-10); NRBC Flagged by Analyzer 0 % (0-5); Neutrophil # 5.41 X10^3/uL (2.7-7.7); Neutrophil % 70.2 % (47-70); Platelet Count 252 K/mm3 (150-450); RBC Distribution Width CV 13.5 % (11.6-14.6); RBC Distribution Width SD 42.9 fl (35.1-43.9); White Blood Count 7.7 K/mm3 (4.4-11.0)
[2023-11-15 13:09] LABS: ALB/GLOB Ratio 0.9 RATIO (0.9-2.4); AST(SGOT) 55 U/L (15-37); Alanine Aminotransfer ALT/SGPT 54 U/L (16-61); Albumin, Serum 3.6 g/dL (3.2-5.0); Alkaline Phosphatase 130 U/L (45-117); Anion Gap 4 (5-15); BUN 34 mg/dL (7-18); BUN/Creat Ratio 18.9 RATIO (10-20); Calcium,Total 9.6 mg/dL (8.5-10.1); Chloride 110 mmol/L (98-107); EST Glomerular Filtration Rate 42 mL/min (>60); Est Glom Filt Rate - Afr Amer 51 mL/min (>60); Globulin 4.2 g/dL (2.2-4.2); Glucose 130 mg/dL (74-106); Potassium 4.1 mmol/L (3.5-5.1); Protein, Total 7.8 g/dL (6.4-8.2); Sodium Level 139 mmol/L (136-145)
[2023-11-15 13:27] LABS: Hemoglobin A1c 6.1 % (3.8-5.6)
== END | disposition home or self-care (01) ==
LOC: BIMLAB 08:15
PROVIDERS: PCP Internal Medicine; Visit Provider Physician Assistant
DX: E11.22 Type 2 diabetes mellitus with diabetic chronic kidney disease (principal); N18.30 Chronic kidney disease, stage 3 unspecified; J02.0 Streptococcal pharyngitis
CPT/HCPCS: 36415; 80053; 81001; 83036; 85025; 85652; 87070; 87086

== ENCOUNTER → 2024-02-06 | Outpatient (CLI) | payer OTHER, SELFPAY ==
--- NOTE | 2024-02-06 06:48 | CT_ITS ---
HISTORY: Possible inguinal hernia. TECHNIQUE: Helically acquired images were obtained of the abdomen and pelvis after the intravenous administration of 100 mL Isovue-370. Readi-CAT also administered orally. A radiation dose optimization technique was used for this scan. 485 images. COMPARISON: 01/21/2017. FINDINGS: LOWER CHEST: Lung bases clear. BOWEL: Bowel including appendix nondilated. Colonic diverticulosis without focal inflammatory change observed. PERITONEUM: No significant ascites. LIVER: Fatty infiltration. GALLBLADDER/BILIARY TREE: Surgical clips in the gallbladder fossa. SPLEEN/PANCREAS/ADRENAL GLANDS: Homogeneous and nonenlarged. KIDNEYS: No hydronephrosis. Subcentimeter left renal cysts. VESSELS: No abdominal aortic aneurysm. PELVIC ORGANS: Unremarkable. ABDOMINAL WALL: Small fat containing umbilical and inguinal hernias without significant stranding in the hernia sac. BONES: Degenerative change. CT/Abdomen/Pelvis WITH Contrast IMPRESSION: No acute abnormality identified. Small fat-containing umbilical and inguinal hernias. Mild hiatal hernia. Colonic diverticulosis without acute diverticulitis. Hepatic steatosis. Cholecystectomy. Electronically Signed: Brianna Lane MD at 9:48 EDT ,
[2024-02-06 07:35] LABS: CREATININE FINGERSTICK 1.3 mg/dL (0.70-1.30)
== END | disposition home or self-care (01) ==
PROVIDERS: PCP Internal Medicine; Referring Provider Surgery; Visit Provider Surgery
DX: R19.09 Other intra-abdominal and pelvic swelling, mass and lump (principal); R10.31 Right lower quadrant pain
CPT/HCPCS: 74177; Q9967

== ENCOUNTER → 2024-02-12 | Outpatient (CLI) | payer OTHER, SELFPAY | END | disposition home or self-care (01) | LOC: LABSPEC 15:01 | PROVIDERS: PCP Internal Medicine; Referring Provider Surgery; Visit Provider Surgery | DX: Z01.818 Encounter for other preprocedural examination (principal) | CPT/HCPCS: 87081 ==

== ENCOUNTER 2024-02-20 09:25 | Day surgery (SDC) | payer OTHER, SELFPAY ==
[2024-02-20] VITALS (10 sets, daily range): BP systolic 113–129; BP diastolic 67–79; PULSE 71–100; RESP 16–22; TEMP 36.4–36.8; O2SAT 91–98; BMI 38.2
[2024-02-20] MEDS: Lactated Ringers 1,000 ML 15 ML IV (10:05)
[2024-02-20 10:14] LABS: Anion Gap 7 (5-15); BUN 24 mg/dL (7-18); BUN/Creat Ratio 15.2 RATIO (10-20); Calcium,Total 8.4 mg/dL (8.5-10.1); Chloride 109 mmol/L (98-107); Creatinine, Serum 1.58 mg/dL (0.70-1.30); EST Glomerular Filtration Rate 49 mL/min (>60); Est Glom Filt Rate - Afr Amer 59 mL/min (>60); Estimated Creatinine Clearance 64.74 ml/min; Glucose 147 mg/dL (74-106); Potassium 3.8 mmol/L (3.5-5.1); Sodium Level 140 mmol/L (136-145)
[2024-02-20 10:18] LABS: Hemoglobin A1c 6.9 % (3.8-5.6)
--- NOTE | 2024-02-20 10:19 | PCM.PRE.AN2 ---
ASA Classification* ASA Classification ASA Classification: 3 Assessment & Plan Anesthesia* Anesthesia Assessment Anesthesia Assessment: Discussed sedation and/or anesthesia options, risks, benefits, and alternatives with patient/parents/legal guardian/POA. Questions invited. The patient/parents/legal guardian/POA seems to understand and agrees to proceed with anesthesia plan. Reviewed the physical assessment, medical history, allergy history and patient home medications list prior to surgery/procedure/anesthetic and documented any changes. Performed airway and anesthesia risk assessments. Anesthesia Type Anesthesia Type: General (* see pre anesthesia record for full assessment) Anesthesia Focused Assessment* Temperature: 98.3 F Pulse Rate: 71 Blood Pressure: 120/67 Respiratory Rate: 18 Pulse Ox: 95 Airway Assessment Mouth opens: >3 cm Mallampati Score: III Focused Labs Anesthesia Preop lab: CBC WBC 7.7 K/mm3 (4.4-11.0) 11/15/23 08:16 RBC 5.40 M/mm3 (4.6-6.2) 11/15/23 08:16 Hgb 15.2 g/dL (13.0-16.5) 11/15/23 08:16 Hct 46.5 % (40-54) 11/15/23 08:16 Plt Count 252 K/mm3 (150-450) 11/15/23 08:16 CHEMISTRY Potassium 3.8 mmol/L (3.5-5.1) 02/20/24 09:50 Sodium 140 mmol/L (136-145) 02/20/24 09:50 Phosphorus 3.1 mg/dL (2.5-4.9) 10/16/22 10:10 BUN 24 mg/dL (7-18) H 02/20/24 09:50 Creatinine 1.58 mg/dL (0.70-1.30) H 02/20/24 09:50 Glucose 147 mg/dL (74-106) H 02/20/24 09:50 POC Glucose 112 mg/dL (74-106) H 07/24/22 16:29 TSH 1.08 uIU/mL (0.358-3.74) 04/20/22 08:00 COAG Pre-Assessment Diagnosis/Proposed Procedure Planned Operative Procedure(s): ROBOTIC RIGHT INGUINAL HERNIA REPAIR WITH MESH/POSS BILAT Anesthesia History Anesthesia History - inspector conveyor line: Anesthesia History - inspector conveyor line Hx Hospitalization No 02/18/24 11:17 Any Problems With Anesthesia No 02/18/24 11:17 Cholinesterase deficiency No 02/18/24 11:17 You/Your Family Experience No 02/18/24 11:17 fever (hyperthermia) with Relationship Recent Exposure to Contagious No 02/20/24 10:01 Disease Does patient have nerve No 02/18/24 11:17 stimulator Patient instructed to have device shut off --Does patient have Pacemaker No 02/20/24 10:01 or ICD? When Was Last Pacemaker Check QUESTION #4 FULL TEXT: You/Your Family Experience fever (hyperthermia) with Anesthesia Last Oral Intake Last Oral intake: Last Oral Intake NPO since 21:00 02/20/24 10:01 Meds taken in AM with sips of water? Meds patient instructed to take am of surgery PONV PONV - inspector conveyor line: PONV - inspector conveyor line Female No 02/18/24 11:17 HX of Motion Sickness No 02/18/24 11:17 HX of N/V After Surgery No 02/18/24 11:17 Non-Smoker Yes 02/18/24 11:17 Duration of Surgery greater Yes 02/18/24 11:17 than 60 minutes Number of Risk Factors 2 02/18/24 11:17 PONV Score Moderate Risk 02/18/24 11:17 Height & Weight Height & Weight: Anesthesia: Height & Weight Height 5 ft 8 in 02/20/24 10:01 Weight: 114 kg 02/20/24 10:01 Body Mass Index (BMI) 38.2 02/20/24 10:01 Respiratory Assessment Respiratory Assessment - inspector conveyor line: Respiratory Tract Infection Hx - inspector conveyor line Hx Respiratory Tract Infection No 02/18/24 11:17 STOP Sleep Apnea STOP Sleep Apnea - inspector conveyor line: STOP Sleep Apnea - inspector conveyor line Hx Hypertension Yes: CONTROLLED WITH MEDS 02/18/24 11:17 Hx Sleep Apnea No 02/18/24 11:17 CPAP BIPAP Do you snore loudly (louder Yes 02/18/24 11:17 than talking or can be heard Do you often feel tired/ No 02/18/24 11:17 fatigued/ sleepy during daytime? Has anyone observed you stop No 02/18/24 11:17 breathing during sleep? STOP Results Positive 02/18/24 11:17 QUESTION #5 FULL TEXT : Do you snore loudly (louder than talking or can be heard through closed doors)? Tobacco Use History Tobacco Use History - inspector conveyor line: Tobacco Use History - inspector conveyor line Tobacco Use Smoking Status Never smoker 02/18/24 11:17 Hx Tobacco Use No 02/18/24 11:17 Years Smoking Packs Smoked per Day Smoking Cessation Date was within the last 15 years Hx Smoking Cessation Date Hx Smoking Cessation Counseling Hematologic Medial History Hematologic Hx - inspector conveyor line: Hematologic Medical Hx - ground support agent Hx of Blood Transfusion No 02/18/24 11:17 Hx of Transfusion in last 3 No 02/18/24 11:17 Months Date of Last Transfusion (if within last 3 months) Ever experience any problems No 02/18/24 11:17 with transfusion(s)? Specify any problems Hx of Preganancy in last 3 N/A 02/18/24 11:17 Months Nurse Filling Out Transfusion DSCHRIBER 02/18/24 11:17 & Questions: Date: 02/18/24 02/18/24 11:17 Time: 11:18 02/18/24 11:17 Patient unable to answer at this time (ie. confused, unrespo /Reproduction History /Reproductive History - inspector conveyor line: /Reproductive Hx- inspector conveyor line Hx Now No 02/18/24 11:17 Gestational Age (in weeks): EDC: Hx Hx Para Hx Section SAB No 02/18/24 11:17 Active Medications Active Medications: Current Medications Generic Name Dose Route Start Last Admin Trade Name Freq PRN Reason Stop Dose Admin Clindamycin Phosphate 900 mg in 50 mls @ 75 mls/hr 02/20/24 11:15 Cleocin IV 02/20/24 11:54 PREOP ONE Lactated Ringer's 1,000 mls @ 15 mls/hr 02/20/24 09:45 02/20/24 10:05 IV 15 mls/hr .Q48H RADHA Administration PFSH Medical History Diabetes History of renal disease Dietary restriction Gastric reflux Non-smoker Shortness of breath on exertion History of stress test Swelling of inguinal region Right groin pain Erectile dysfunction Vitamin D deficiency 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 Enlargement of liver High cholesterol History of basal cell carcinoma History of skin cancer Hypertension Home Medications ?Medication ?Instructions ?Recorded ?Last Taken ?Type blood sugar diagnostic (FreeStyle 07/23/22 Unknown History Lite Strips) blood-glucose meter (FreeStyle 07/23/22 Unknown History Lite Meter kit) lancets 28 gauge (FreeStyle 07/23/22 Unknown History Lancets) tadalafil 10 mg tablet 10 mg PO DAILY PRN sexual activity 01/08/23 Unknown Rx #30 tabs amlodipine 10 mg tablet 10 mg PO DAILY bp #90 tabs 02/17/24 02/20/24 Rx dapagliflozin propanediol 10 mg 10 mg PO QAM #90 tabs 02/17/24 02/19/24 Rx tablet (Farxiga) hydrochlorothiazide 25 mg tablet 25 mg PO DAILY bp #90 tabs 02/17/24 02/19/24 Rx lisinopril 40 mg tablet 20 mg (1/2 x 40 mg) PO DAILY BP 02/17/24 02/20/24 Rx #90 tabs rosuvastatin 10 mg tablet 10 mg PO QHS cholesterol #90 tabs 02/17/24 02/19/24 Rx Allergy/AdvReac Type Severity Reaction Status Date / Time Penicillins (PCN) Allergy PT UNSURE Verified 02/20/24 10:00 OF REACTION Family History Father Heart disease Diabetes Liver disease Hypertension High cholesterol Grandfather Myocardial infarction Mother High cholesterol Hypertension Other Anxiety Combined hyperlipidemia Surgical History S/P laparoscopic cholecystectomy History of hand surgery Skin cancer Social History Smoking Status: Never smoker alcohol intake: current alcohol intake frequency: a few times a month substance use type: does not use what type of physical activity do you participate in: bicycling additional social history: Does not take aspirin Does not take Ibuprofen Review of Systems (Anesthesia) ROS Narrative System reviewed and no additional complaints, except as documented.
--- NOTE | 2024-02-20 10:48 | PCM.HP.BLA ---
History and Physical Date of Admission: 02/20/24 Date of Service: 01/27/24 MR#: [id number] Acct: [id number] Name: UMER PACE Jr. Rep #: [id number] : 1970 Provider: Dr. Irwin Arias MD Age/Sex: 53/M Location: [facility] Status: Signed Intake Vital Signs 01/01/2413:59 01/26/2414:56 Height 5 ft 8 in 5 ft 8 in Weight: 245 lb 252 lb 8 oz BMI 37.2 38.4 BP 130/84 H 117/76 Blood Pressure Location Lt brachial Rt brachial Position Sitting Sitting Respiration 14 18 Pulse 74 80 Pulse Source Monitor Monitor Temp 99 F 97.5 F L Temp Source Temporal Temporal Pulse Oximetry (%) 95 96 Oxygen Delivery Method room air room air Intake Visit Reasons: BILAT LUMPS IN GROIN Chief Complaint: Right Groin pain Is patient in pain?: Yes (right groin feels like it is burning and pulling ) Allergies Penicillins (PCN) Allergy (Verified 01/27/24 14:57) PT UNSURE OF REACTION Medications ?Medication ?Instructions ?Recorded ?Confirmed ?Type blood sugar diagnostic (FreeStyle 07/23/22 01/27/24 History Lite Strips) blood-glucose meter (FreeStyle 07/23/22 01/27/24 History Lite Meter kit) lancets 28 gauge (FreeStyle 07/23/22 01/27/24 History Lancets) rosuvastatin 10 mg tablet 10 mg PO QHS cholesterol #90 tabs 01/08/23 01/27/24 Rx tadalafil 10 mg tablet 10 mg PO DAILY PRN sexual activity 01/08/23 01/27/24 Rx #30 tabs amlodipine 10 mg tablet 10 mg PO DAILY bp #90 tabs 08/14/23 01/27/24 Rx dapagliflozin propanediol 10 mg 10 mg PO QAM #90 tabs 08/14/23 01/27/24 Rx tablet (Farxiga) hydrochlorothiazide 25 mg tablet 25 mg PO DAILY bp #90 tabs 08/14/23 01/27/24 Rx lisinopril 40 mg tablet 20 mg (1/2 x 40 mg) PO DAILY BP 08/14/23 01/27/24 Rx #90 tabs Have you fallen in the past year?: No PFSH Medical History Swelling of inguinal region Right groin pain Erectile dysfunction Vitamin D deficiency 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 Enlargement of liver Kidney disease High cholesterol Borderline diabetes History of basal cell carcinoma Vitamin deficiency History of skin cancer Hypertension Gallstones Seasonal allergies Surgical History S/P laparoscopic cholecystectomy History of hand surgery Skin cancer Family History Father Heart disease Diabetes Liver disease Hypertension High cholesterolGrandfather Myocardial infarctionMother High cholesterol HypertensionOther Anxiety Combined hyperlipidemia Social History Smoking Status: Never smoker alcohol intake: current alcohol intake frequency: a few times a month substance use type: does not use what type of physical activity do you participate in: bicycling additional social history: Does not take aspirin Does not take Ibuprofen HPI HPI HPI: Patient is a 53-year-old male who is known to me from prior laparoscopic cholecystectomy with lipoma removal as well on 07/25/2022 who presents for complaints of new right groin pain and concern for possible hernia. This finding was first noticed by patient a couple of months ago after he was lifting bags of dirt to fill pots at his home. Mr. Pace describes this as a funny feeling that occurred initially and then as the day progressed a heavier and heavier feeling. 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 He does share that there has been less of a sharp pain. He also reports that after he stops to rest his pain spontaneously gets better. He denies noting any clear evidence of bulging, but confesses there is a limitation of this observation because he has redundant soft tissue in that region. Mr. Pace states that he has had some change in his weight with weight gain due to simply not watching. Patient confirms excellent control of his diabetes and a review of the medical record shows last A1c of 6.1. Patient has no personal history of smoking. Patient has no personal history of recurrent cutaneous infections including staph. Pertinent surgical history includes: Laparoscopic cholecystectomy as referenced above ROS General General: Yes weight change; No appetite, fatigue, colon cancer, breast cancer or weakness HEENT HEENT: No difficulty swallowing, eye injury, eye surgery, swollen glands or hoarseness Endo Endocrine: Yes diabetes mellitus; No thyroid disease, thyroid cancer, Hair loss, heat intolerance or cold intolerance Skin Skin: No rash or changing moles Musc Musculoskeletal: No back problems, arthritis, rheumatoid arthritis, gout or joint pain Cardio Cardiovascular: Yes high blood pressure; No murmur, pacemaker, heart disease, atrial fibrillation, heart attack, heart stent, palpitations, shortness of breat with exertion or chest pain Psych Psychiatric: No depression, anxiety or hearing voices Resp Respiratory: Yes shortness of breath, No sleep apnea, No cough, No COPD, No asthma, No emphysema and No wheezing Gastro Gastrointestinal: No abdominal pain, No nausea or vomiting, No diarrhea, No constipation, No blood in stool, Yes acid reflux, No hemorrhoids, No ulcers, No gallbladder problem and No black,tarry stools Anton Hematologic: No blood thinners, No blood disorders, No bleeding, No anemia and No blood clots Neuro Neurologic: No numbness, No tingling and No weakness Exam Const General: cooperative, no acute distress and anxious Orientation: alert, awake and oriented x3 Resp Effort & Inspection: normal respiratory effort GI Other: Obese, well-healed surgical incisions from prior laparoscopy, nondistended, soft, nontender to palpation x 4 quadrants Other: Bilaterally descended testicles with palpable varicoceles. No tenderness with palpation of the left, however on the right there is tenderness but no clearly discernible hernia. There does seem to be some more fullness of the left groin when compared to the right side but it is difficult to determine if this is simply soft tissue of the mons pubis or if there is a component of a hernia from the indirect space. Assessment and Plan Assessment and Plan (1) Swelling of inguinal region: Status: Chronic Comment: Patient is a 53-year-old male who presents with some swelling of the right inguinal region but no clearly discernible defect with exam either in a standing or a supine position. Still, given his level of discomfort and his description of the mechanism I would like to fully rule out a underlying right inguinal hernia. Therefore I am requesting a CT of this area. If a hernia is found, patient has been briefed on both the operative procedure as well as postoperative recovery expectations. If, however, no hernias found I would plan to manage him for athletica pubalgia or similar diagnosis. Further, I believe he may require follow-up with urology to see if he is having symptoms from his varicoceles. Plan: CT of the abdomen pelvis with IV contrast (2) Right groin pain: Status: Chronic Comment: Patient with history of chronic right groin pain dating back to at least 2019. However, when patient is reminded of this he states that his current pain is distinct from what he experienced 4 years ago. He states that the latter was self-limited and not as painful as his present complaints. Still, he has had ultrasounds following both experiences and neither of identified concerns for hernias. Patient has no history of CT imaging of the pelvis so I am looking to obtain such a study to more fully evaluate this question. Differential certainly, however, includes athletica pubalgia, varicocele, other... Orders: Orders CT Abd/Pelvis W/WO Contrast Today R10.30 - Lower abdominal pain, unspecified, R10.31 - Right lower quadrant pain, R19.09 - Other intra-abdominal and pelvic swelling, mass and lump I have examined the patient the following changes are noted: Patient completed CT of the abdomen pelvis as requested and radiology has read this as consistent with bilateral inguinal hernias as well as a small umbilical hernia. I discussed these results with patient via telephone and again this morning. He maintains that his symptoms are exclusively coming from the right side, however, I shared that if there is an obvious defect on the left and I would proceed with repair of that side as well. I did offer primary repair of his umbilical hernia with suture, however, he is concerned about the physical demands from his job leading to a recurrence and wishes to defer any management for this issue to a later date. Procedure and post procedure activity restrictions were reviewed. Neither patient nor his family have any further questions. Will proceed to the operating room for right, possible bilateral robot-assisted inguinal hernia repair with mesh.
[2024-02-20] MEDS: Clindamycin 900 MG/50 ML BAG 75 MG IV (11:03)
[2024-02-20 12:40] LABS: Bedside Glucose 162 mg/dL (74-106)
--- NOTE | 2024-02-20 13:47 | PCM.OPRPT ---
Report of Operation Date of Procedure: 02/20/24 Pre-Operative Diagnosis: Right possible bilateral inguinal hernias Post-Operative Diagnosis: Right indirect inguinal hernia with associated large cord lipoma. No visible defect on the left Surgery/Procedure Performed:: Robot-assisted right inguinal hernia repair with mesh Description of Surgical Findings:: ? Indirect type right inguinal hernia with associated large cord lipoma extending to the retroperitoneum ? Small umbilical hernia containing fat Surgeon: Irwin Arias sand cutting machine operator: Enrique Moore Type of Anesthesia: General/Supplemental Anesthesiologist: Mark Pierce Estimated Blood Loss (mL): 5 Description of Procedure: After appropriate identification in the preoperative holding area the patient was brought to the operating room where he was positioned supine on the operating table. Preoperative antibiotics were completed and the patient was administered a general anesthetic. Patient's abdomen was then prepped and draped in usual sterile fashion. Formal timeout followed to confirm patient and procedure. Procedure was begun with an optical entry facilitated by Veress insufflation at Hallman's point. Once pneumoperitoneum reached a set point pressure of 15 mmHg the Veress needle was withdrawn and an optical entry was made with a robotic trocar through that incision site. Laparoscopic visualization confirmed no inadvertent injury to the viscera below and 2 additional ports were placed in the right upper quadrant and paramedian positions, respectively, after instillation of local anesthetic. Patient was positioned in slight Trendelenburg and I performed a local block of the right ilioinguinal nerve using 4 mL local anesthetic under laparoscopic visualization. The robot was docked in standard fashion. In this positioning I could visualize a indirect abdominal wall defect. Robotically, a peritoneal flap was created on the right extending from the medial umbilical ligament to the level of the ASIS (external) and was bluntly dissected to expose the medial parietal compartment and lateral visceral compartments. Medially I could visualize the pubic tubercle and Jamil's ligament while laterally I extended the dissection down to the level of the psoas muscle. The hernia sac was identified and from the cord structures deeply with selective use of monopolar energy. A large cord lipoma was identified as being partially entwined with the cord structures and meticulously removed from its position relative to the cord structures with monopolar energy. The cord lipoma was proximally was left intact as it appeared to disappear into the retroperitoneal adipose tissue. Beyond this, I looked for but did not visualize a direct, femoral, or obturator defect. The peritoneal flap was inspected to ensure that cord was appropriately parietalized and there was no pulling of the cord structures or the viscera deeply over the psoas using the pull test. Once satisfied, a Bard 3D max, size large, mid weight mesh was placed into the abdomen along with suture. It was positioned within the preperitoneal pocket so that there was good medial and inferior overlap and was tucked in front of both the bladder as well as the cord lipoma over the cord structures and the myopectineal orifice. It was then tacked to Jamil's ligament and the admuniculum of the linea alba just superior to the pubic tubercle. Laterally it was tacked in a partial-thickness bite of the abdominal wall using a 3-0 Vicryl suture. The peritoneal flap was then closed with a running 3-0 V-Loc suture taking care to conceal the barbs of the suture beneath the peritoneum. Once the flap closure was complete, I undertook repair of peritoneal defects with 3-0 Vicryl. With the peritoneal defects closed, sutures were systematically removed from the peritoneum and the pneumoperitoneum was evacuated before removing the trocars. The port sites were closed at the skin with running 4-0 Monocryl in a subcuticular fashion. Steri-Strips and OpSite's were used as dressings. Patient's testicle was confirmed within the scrotum. Patient was then awoken from anesthetic and transferred to PACU for ongoing recovery. Grafts/Implants Used: 3D max mid mesh, lot [id number], reference [id number] Complications None Admit VTE Documentation VTE Mechan Device Prophylaxis: SCD's Procedures Digestive 40xxx-49xxx: 05725 Lap ing hernia repair init
[2024-02-20] MEDS: Bupiv/Epi 0.25% 30 ML Vial (13:56)
--- NOTE | 2024-02-20 13:56 | EX.PCM.DISCH ---
Discharge Instructions Diet Discharge Diet: No restrictions Activity Discharge Activity: May Not Drive (While taking narcotic pain medication) and May Shower May shower in (days): 2 Ice area for (Minutes): 20 Lifting Restrictions: No lifting greater than 10 pounds for the next 5 weeks Dressing / Incision Call your doctor if your incision/area has: Continuous Slow Oozing, Increased Pain/ Swelling, Increased Redness, Foul Smelling Discharge and Swelling at the incision site Call your doctor if you observe: Fever of 101 or Higher, Inability to urinate and Inability to have a bowel movement Change Dressing in: 2 days (Please leave Steri-Strips intact until they fall off spontaneously or are taken off at your follow-up visit) Remove Dressing in: 2 days Cleanse incision/area with: Soap & Water and Keep Dressing Clean & Dry Follow Up Care Please Follow Up With: Irwin Arias MD When: 1-2 weeks postop Test Results: Test results from this visit will be discussed in further detail at your follow-up appointment, if applicable. Discharge Plan Admission Primary Reason for Your Visit: Inguinal hernia repair Attending Provider: Irwin Arias Primary Care Provider: Cristi Serna Instructions Print Language: Bahraini Discharge Orders/Prescriptions Prescriptions: New oxycodone 5 mg tablet 5 mg PO Q6H PRN (Reason: pain) 3 Days Qty: 10 0RF Continued tadalafil 10 mg tablet 10 mg PO DAILY PRN (Reason: sexual activity) Qty: 30 1RF Rx Instructions: administer approximately 30min before sexual activity; do not use more than 1 dose per 24hrs (DME) FreeStyle Lite Strips Strip See Rx Instructions MISCELLANEOUS .MEDSUPPLY Rx Instructions: check blood glucose daily for type 2 DM (DME) blood-glucose meter [FreeStyle Lite Meter] Kit See Rx Instructions MISCELLANEOUS .MEDSUPPLY Rx Instructions: As directed, check blood glucose daily for type 2 DM (DME) lancets [FreeStyle Lancets] 28 gauge misc See Rx Instructions MISCELLANEOUS Rx Instructions: check blood glucose daily for type 2 DM lisinopril 40 mg tablet 20 mg PO DAILY Qty: 90 1RF Farxiga 10 mg tablet 10 mg PO QAM Qty: 90 1RF hydrochlorothiazide 25 mg tablet 25 mg PO DAILY Qty: 90 1RF amlodipine 10 mg tablet 10 mg PO DAILY Qty: 90 1RF rosuvastatin 10 mg tablet 10 mg PO QHS Qty: 90 1RF Referrals / Follow Up: Cristi Serna MD [Primary Care Provider] - Disposition Disposition (needs filled in before D/C Order can be placed): Home, Self Care
--- NOTE | 2024-02-20 14:09 | PCM.POST.ANE ---
Anesthesia: Postop Eval I Current Vital Signs Temperature: 97.6 F Pulse Rate: 94 Blood Pressure: 127/71 Respiratory Rate: 22 Pulse Ox: 97 Oxygen Delivery Method: Simple Mask Oxygen Flow Rate (L/min): 6 Assessment Airway patent: Yes Spontaneous unlabored respirations: Yes Mental status: Awake and Calm nausea: No Vomiting: No Anesthesia Complication: No Fluid Hydration Crystalloid volume administer (ml): 1,700 Total IV fluid infused: 1,700 Progress Note Anesthesia document: Postop Eval 1 completed: Yes
--- NOTE | 2024-02-20 15:09 | POSTOPAN2_ITS ---
Anesthesia Postop Eval I Sum Postop Eval Completion status Anesthesia document: Postop Eval 1 completed: Yes Anesthesia Postop Eval I Summary Anesthesia Postop Eval I Summary: Anesthesia Postop Eval I: Assessment Summary Airway patent Yes 02/20/24 14:10 [email or web address] Spontaneous unlabored Yes 02/20/24 14:10 [employer] [email or web address] respirations Mental status Awake,Calm 02/20/24 14:10 [employer] [email or web address] nausea No 02/20/24 14:10 [employer] [email or web address] Vomiting No 02/20/24 14:10 [employer] [email or web address] Anesthesia Postop Eval I: Fluid Summary Crystalloid volume administer 1,700 02/20/24 14:10 [employer] [email or web address] (ml) Colloids volume administered ( ml) Blood Product volume administered (ml) Total IV fluid infused 1,700 02/20/24 14:10 [employer] [email or web address] Anesthesia Postop Eval I: Summary Notes Anesthesia Complication No 02/20/24 14:10 [employer] [email or web address] Anesthesia Complication Comment: Post-operative progress note Anesthesia: Postop Eval II Evaluation Mental status: Awake Pain Level: 0 nausea: No Vomiting: No
--- NOTE | 2024-02-20 15:09 | PCM.POSTANE2 ---
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 respirations Mental status Awake,Calm 02/20/24 14:10 MUSIC [email or web address] nausea No 02/20/24 14:10 MUSIC [email or web address] Vomiting No 02/20/24 14:10 [email or web address] Anesthesia Postop Eval I: Fluid Summary Crystalloid volume administer 1,700 02/20/24 14:10 MUSIC [email or web address] (ml) Colloids volume administered ( ml) Blood Product volume administered (ml) Total IV fluid infused 1,700 02/20/24 14:10 MUSIC [email or web address] Anesthesia Postop Eval I: Summary Notes Anesthesia Complication No 02/20/24 14:10 MUSIC [email or web address] Anesthesia Complication Comment: Post-operative progress note Anesthesia: Postop Eval II Evaluation Mental status: Awake Pain Level: 0 nausea: No Vomiting: No
== END 2024-02-20 16:11 | disposition home or self-care (01) ==
LOC: SDC 09:26 → AC 09:28
PROVIDERS: Anesthesiology; PCP Internal Medicine; Referring Provider Surgery; Visit Provider Surgery
PROC: (CPT 49650; principal; 2024-02-20 10:55)
DX: K40.90 Unilateral inguinal hernia, without obstruction or gangrene, not specified as recurrent (principal); E11.9 Type 2 diabetes mellitus without complications; I10 Essential (primary) hypertension; R10.31 Right lower quadrant pain; R19.09 Other intra-abdominal and pelvic swelling, mass and lump; Z79.84 Long term (current) use of oral hypoglycemic drugs; D17.1 Benign lipomatous neoplasm of skin and subcutaneous tissue of trunk; E78.00 Pure hypercholesterolemia, unspecified; Z90.49 Acquired absence of other specified parts of digestive tract
CPT/HCPCS: 49650; 00840; 80048; 82962; 83036; 93005; J7120; J2405

== ENCOUNTER → 2024-04-20 | Outpatient (CLI) | payer OTHER, SELFPAY ==
[2024-04-20 07:29] LABS: Hematocrit 45.8 % (40-54); Hemoglobin 15.4 g/dL (13.0-16.5); Mean Corp Hgb Conc 33.6 g/dL (32-36); Mean Corpuscular Volume 86.3 fL (80-94); Mean Platelet Vol. 10.7 fl (6.2-12.0); Platelet Count 222 K/mm3 (150-450); RBC Distribution Width SD 44.4 fl (35.1-43.9); Red Blood Count 5.31 M/mm3 (4.6-6.2)
[2024-04-20 10:05] LABS: PTHIN 115.1 pg/mL (18.4-80.1)
[2024-04-20 10:06] LABS: Vitamin D,25 Hydroxy 28.9 ng/mL
[2024-04-20 10:35] LABS: Protein, Urine (Random) 35.1 mg/dL (<11.9); Protein:Creat Ratio 199 mg/g CRE (0-200)
[2024-04-20 10:52] LABS: Albumin, Serum 3.7 g/dL (3.2-5.0); BUN 32 mg/dL (7-18); BUN/Creat Ratio 16.2 RATIO (10-20); Calcium,Total 9.3 mg/dL (8.5-10.1); Chloride 105 mmol/L (98-107); Creatinine, Serum 1.98 mg/dL (0.70-1.30); EST Glomerular Filtration Rate 37 mL/min (>60); Est Glom Filt Rate - Afr Amer 45 mL/min (>60); Glucose 143 mg/dL (74-106); Potassium 3.4 mmol/L (3.5-5.1); Sodium Level 139 mmol/L (136-145)
== END | disposition home or self-care (01) ==
LOC: LAB 06:41
PROVIDERS: PCP Internal Medicine; Referring Provider Internal Medicine Nephrology; Visit Provider Internal Medicine Nephrology
DX: N18.32 Chronic kidney disease, stage 3b (principal); E55.9 Vitamin D deficiency, unspecified
CPT/HCPCS: 36415; 80069; 82306; 82570; 83970; 84156; 85027

== ENCOUNTER → 2024-07-21 | Outpatient (CLI) | payer OTHER, SELFPAY ==
--- NOTE | 2024-07-21 09:06 | US_ITS ---
EXAM: US ABDOMEN LIMITED, RIGHT UPPER QUADRANT CLINICAL INDICATION: RUQ Pain TECHNIQUE: Real-time ultrasound of the right upper quadrant with image documentation. COMPARISON: No relevant prior studies available. FINDINGS: LIVER: Liver measures 17.6 cm in length. Liver is echogenic with no masses. No intrahepatic biliary ductal dilation. GALLBLADDER: Prior cholecystectomy. Cholecystectomy. COMMON BILE DUCT: Common duct measures 10 mm. The proximal common bile duct is within normal limits for the patient''s age. PANCREAS: Pancreas is suboptimally visualized due to bowel gas. RIGHT KIDNEY: Right kidney is normal except for possible perinephric stranding. There is no hydronephrosis. No shadowing calculus. FREE FLUID: No free fluid. VASCULAR: Normal blood flow in the main portal vein. US/Abdomen Limited IMPRESSION: 1. Hepatosplenomegaly and hepatic steatosis. 2. Right kidney is normal except for possible perinephric stranding. This is of doubtful clinical significance in the absence of any clinical concern for renal infection. Electronically Signed: Jose Dugan MD at 15:39 EST ,
== END | disposition home or self-care (01) ==
LOC: US 09:02
PROVIDERS: PCP Internal Medicine; Referring Provider Internal Medicine; Visit Provider Internal Medicine
DX: R10.11 Right upper quadrant pain (principal)
CPT/HCPCS: 76705

== ENCOUNTER → 2024-12-11 | Outpatient (CLI) | payer OTHER, SELFPAY ==
[2024-12-11 12:59] LABS: Absolute Lymphocyte Count 1.83 X10^3/uL (0.83-4.51); Absolute Neutrophil Count 5.3 X10^3/uL (2.0-7.7); Basophil# 0.08 X10^3/uL; Eosinophil# 0.49 X10^3/uL; Eosinophils% 5.8 % (0-5); Hematocrit 50.6 % (40-54); Hemoglobin 16.9 g/dL (13.0-16.5); Lymphocyte # 1.83 X10^3/ul (0.83-4.51); Lymphocyte % 21.8 % (19-41); Mean Corp Hgb Conc 33.4 g/dL (32-36); Mean Corpuscular Hgb 28.5 pg (27.0-32.0); Mean Corpuscular Volume 85.5 fL (80-94); Mean Platelet Vol. 11.3 fl (6.2-12.0); Monocyte# 0.68 X10^3/uL; Monocyte% 8.1 % (0-10); NRBC Flagged by Analyzer 0 % (0-5); Neutrophil # 5.28 X10^3/uL (2.7-7.7); Neutrophil % 63.1 % (47-70); Platelet Count 218 K/mm3 (150-450); RBC Distribution Width CV 13.7 % (11.6-14.6); RBC Distribution Width SD 42.5 fl (35.1-43.9); Red Blood Count 5.92 M/mm3 (4.6-6.2); White Blood Count 8.4 K/mm3 (4.4-11.0)
[2024-12-11 13:22] LABS: ALB/GLOB Ratio 1.3 RATIO (0.9-2.4); AST(SGOT) 26 U/L (<=37); Alanine Aminotransfer ALT/SGPT 30 U/L (<=46); Albumin, Serum 4.4 g/dL (3.5-5.0); Alkaline Phosphatase 105 U/L (40-129); Anion Gap 12 (5-15); BUN 28 mg/dL (4-19); Calcium,Total 9.8 mg/dL (7.6-11.0); Carbon Dioxide 24.3 mmol/L (21.0-32.0); Chloride 101 mmol/L (98-108); Cholesterol 183 mg/dL (<=200); Creatinine, Serum 1.66 mg/dL (0.70-1.20); EST Glomerular Filtration Rate 48 (>60); Globulin 3.4 g/dL (2.2-4.2); Glucose 147 mg/dL (70-99); High Density Lipoprotein 31 mg/dL; Low Density Lipoprotein Calc. 97 mg/dL; Potassium 3.7 mmol/L (3.3-5.1); Protein, Total 7.8 g/dL (5.9-8.4); Sodium Level 137 mmol/L (133-145); Total Bilirubin 0.33 mg/dL (0.00-1.30); Triglycerides 276 mg/dL; Very Low Density Lipoprotein 55 mg/dL (5-40); cholesterol:hdl ratio screen 5.98
== END | disposition home or self-care (01) ==
LOC: BIMLAB 08:12
PROVIDERS: PCP Internal Medicine; Referring Provider Physician Assistant; Visit Provider Physician Assistant
DX: E11.22 Type 2 diabetes mellitus with diabetic chronic kidney disease (principal); N18.32 Chronic kidney disease, stage 3b; I12.9 Hypertensive chronic kidney disease with stage 1 through stage 4 chronic kidney disease, or unspecified chronic kidney disease
CPT/HCPCS: 36415; 80053; 80061; 84443; 85025

== ENCOUNTER → 2025-04-20 | Outpatient (CLI) | payer OTHER, SELFPAY ==
[2025-04-20 10:11] LABS: Hematocrit 48.9 % (40-54); Hemoglobin 16.8 g/dL (13.0-16.5); Mean Corp Hgb Conc 34.4 g/dL (32-36); Mean Corpuscular Volume 85.2 fL (80-94); Mean Platelet Vol. 11.7 fl (6.2-12.0); Platelet Count 227 K/mm3 (150-450); RBC Distribution Width CV 14.2 % (11.6-14.6); RBC Distribution Width SD 44.0 fl (35.1-43.9); Red Blood Count 5.74 M/mm3 (4.6-6.2); White Blood Count 8.3 K/mm3 (4.4-11.0)
[2025-04-20 10:34] LABS: Creatinine, Urine (random) 87.00 mg/dL (39.00-259.00); PTHIN 35 pg/mL (11-61); Protein, Urine (Random) 23.4 mg/dL (0.0-12.0); Protein:Creat Ratio 269 mg/g CRE (0-200)
[2025-04-20 10:48] LABS: Vitamin D,25 Hydroxy 22.5 ng/mL (30-100)
[2025-04-20 10:49] LABS: Albumin, Serum 4.3 g/dL (3.5-5.0); Anion Gap 13 (5-15); BUN 35 mg/dL (4-19); BUN/Creat Ratio 20.5 RATIO (10-20); Calcium,Total 9.9 mg/dL (7.6-11.0); Carbon Dioxide 24.0 mmol/L (21.0-32.0); Chloride 103 mmol/L (98-108); Glucose 140 mg/dL (70-99); Potassium 3.7 mmol/L (3.3-5.1)
== END | disposition home or self-care (01) ==
LOC: LAB 08:28
PROVIDERS: PCP Internal Medicine; Referring Provider Internal Medicine Nephrology; Visit Provider Internal Medicine Nephrology
DX: N18.32 Chronic kidney disease, stage 3b (principal); E55.9 Vitamin D deficiency, unspecified
CPT/HCPCS: 36415; 80069; 82306; 82570; 83970; 84156; 85027